=== PATIENT | female | born 1955 | race African-American/Black ===

== ENCOUNTER 2016-11-28 23:32 | Emergency (ER) | payer BC ==
[~2016-11-28] VITALS: Ht 167.6 cm; Wt 86.0 kg
[~2016-11-28 23:32] MED LIST: ACET250T3 PO; ATOR40TA PO; CEPH500C3 PO; CLOP75 PO; LORA-392 PO; LORTA5 PO; PANT20 PO; SULF-154 PO; VERA120T3 PO; ZOFR4TAB3 SL
[2016-11-28 23:33] VITALS: BP 184/91; PULSE 65; RESP 16; TEMP 98.5; O2SAT 99
[2016-11-29 00:22] VITALS: BP 147/85; PULSE 66; RESP 18; O2SAT 99
[2016-11-29] MEDS ORDERED: ATOR40TA16 PO (00:35)
[2016-11-29] MEDS ORDERED: ACETA500 PO (00:35)
[2016-11-29] MEDS ORDERED: ACET-822 (00:35)
[2016-11-29] MEDS ORDERED: MULT-159 (00:35)
[2016-11-29] MEDS ORDERED: GABA300C5 PO (00:35)
[2016-11-29] MEDS ORDERED: PANT40TA3 PO (00:35)
[2016-11-29] MEDS ORDERED: PRED1SUS RIGHT EYE (00:35)
[2016-11-29] MEDS ORDERED: CLOP75TA PO (00:35)
[2016-11-29] MEDS ORDERED: VERA120T3 PO (00:35)
[2016-11-29] MEDS ORDERED: ZOLP10TA3 PO (00:35)
[2016-11-29] MEDS ORDERED: ASPI81CH CHEW (00:35)
[2016-11-29] MEDS ORDERED: DIVA250ER PO (00:35)
[2016-11-29] MEDS ORDERED: ACETAMINOPHEN/CODEINE 300 MG/30 MG TAB PO ONE (01:00)
--- NOTE | 2016-11-29 02:04 | RADRPT ---
EXAM DATE/TIME: 11/29/2016 01:18 [facility] COMPARISON: No previous studies available for comparison. INDICATIONS : Left shoulder pain post fall. MEDICAL HISTORY : None. SURGICAL HISTORY : None. ENCOUNTER: Initial ACUITY: 1 day PAIN SCORE: 10/10 LOCATION: Left upper extremity FINDINGS: Multiple view examination of the left shoulder demonstrates no evidence of fracture or dislocation. The glenohumeral and acromioclavicular joints are maintained. There is normal range of motion betwee n internal and external rotation. Bony mineralization is normal. CONCLUSION: No acute fracture. Claude Flowers MD on November 29, 2016 at 2:01 Board Certified Radiologist. This report was verified electronically.
--- NOTE | 2016-11-29 02:15 | PD ---
HPI Chief Complaint: Fall Time Seen by Provider: 00:42 Travel History International Travel<30 days: No Contact w/Intl Traveler<30days: No Traveled to known affect area: No History of Present Illness HPI This is a 61-year-old female patient who slipped and fell earlier today onto her left shoulder. Examination initially noted pain in the left shoulder increased with movement and states she was able to move her arm freely. Time progressed patient noted increasing difficulty with all range of motion of the left shoulder all with an increased intensity of pain. She therefore came to the ER for evaluation and assessment of her symptoms. PFSH Past Medical History Hx Anticoagulant Therapy: No Arthritis: Yes Blood Disorders: No Heart Rhythm Problems: No Cancer: No Cardiac Catheterization: Yes Cardiovascular Problems: Yes (HTN, high cholesterol) High Cholesterol: Yes Chemotherapy: No Chest Pain: Yes Congestive Heart Failure: No Cerebrovascular Accident: No Diabetes: No Diminished Hearing: No Endocrine: No Gastrointestinal Disorders: Yes GERD: Yes Genitourinary: No Headaches: Yes Hypertension: Yes Immune Disorder: No Musculoskeletal: Yes (1986 BACK BRACE FOR DISK PAIN, ) Neurologic: Yes (TIA,CVA ) Psychiatric: No Reproductive: No Respiratory: No Migraines: Yes Radiation Therapy: No Seizures: No Menopausal: Yes Past Surgical History Abdominal Surgery: Yes Coronary Artery Bypass Graft: No Genitourinary Surgery: Yes (BLADDER SURGERY) Gynecologic Surgery: Yes Hysterectomy: No Tonsillectomy: Yes Other Surgery: Yes (HYSTERECTOMY,TONSILECTOMY, BLADDER) Social History Alcohol Use: No Tobacco Use: Yes (1PPD q3 days) Substance Use: No Allergies-Medications (Allergen,Severity, Reaction): Coded Allergies: Clonidine (Unverified Allergy, Intermediate, Hypotension, 11/29/16) "blood pressure too low" Reported Meds & Prescriptions Reported Meds & Active Scripts Active Reported Gabapentin 300 Mg Cap 300 Mg PO BID Depakote ER (Divalproex Sodium) 250 Mg Hina 0 PO DAILY Tylenol Extra Strength (Acetaminophen) 500 Mg Tablet Clopidogrel (Clopidogrel Bisulfate) 75 Mg Tab 75 Mg PO DAILY Multivitamins (Multivitamin) 1 Each Tab.chew Pantoprazole (Pantoprazole Sodium) 40 Mg Tab 40 Mg PO DAILY Verapamil (Verapamil HCl) 120 Mg Tab 120 Mg PO DAILY Atorvastatin (Atorvastatin Calcium) 40 Mg Tab 40 Mg PO HS Aspirin 81 Mg Chew 81 Mg CHEW DAILY Zolpidem (Zolpidem Tartrate) 10 Mg Tab 10 Mg PO HS PRN Diamox Sequels ER 12 HR (Acetazolamide) 500 Mg Cap 500 Mg PO Q12HR Pred Forte Opth 1% (Prednisolone Acetate Opth 1%) 1% Susp 1 Drop RIGHT EYE QID Review of Systems ROS Limitations: Clinical Condition Except as stated in HPI: all other systems reviewed are Neg General / Constitutional: No: Fever, Chills, Weight Gain, Weight Loss, Other Eyes: No: Diploplia, Blurred Vision, Photophobia, Drainage, Redness, Foreign Body Sensation, Pain, Tearing, Blind Spots, Visual changes, Blindness, Other HENT: No: Headaches, Vertigo, Lightheadedness, Sore Throat, Rhinitis, Rhinorrhea, Congestion, Nosebleed, Neck Stiffness, Neck Pain, Masses, Gingival Bleeding, Dental Difficulties, Ear Discharge, Earache, Other Cardiovascular: No: Chest Pain or Discomfort, Palpitations, Irregular Rhythm, Tachycardia, Diaphoresis, Syncope, Dyspnea on exertion, Varicosities, Edema, Cyanosis, Varicosities, Phlebitis, Claudication, Other Respiratory: No: Cough, Shortness of Breath, Wheezing, Sneezing, Orthopnea, Hemoptysis, Stridor, Night Sweats, Pleuritic Pain, Other Gastrointestinal: No: Nausea, Vomiting, Diarrhea, Abdominal Pain, Hematemesis, Hematochezia, Constipation, Changes in Bowel Habits, Indigestion, Dysphagia, Loss of Appetite, Other Genitourinary: No: Urgency, Frequency, Dysuria, Nocturia, Hematuria, Decreased Urinary Output, Oliguria, Hesitancy, Dribbling, Incontinence, Pelvic Pain, Flank Pain, Dyspareunia, Discharge, Dysmenorrhea, Menorrhagia, Metorrhagia, Vaginal Bleeding, Other Musculoskeletal: Positive: Limited ROM, Pain, No: Myalgias, Arthralgias, Weakness, Cramping, Edema, Atrophy, Other Skin: No Rash, No Itching, No Dryness, No Lumps, No Hives, No Change in Pigmentation, No Change in nails, No Alopecia, No Lesions, No Breast Lumps, No Breast Tenderness, No Breast Swelling, No Other Neurologic: No: Weakness, Dizziness, Syncope, Focal Abnormalities, Coordination Problem, Tremor, Ataxia, Headache, Change in Mentation, Slurred Speech, Paresthesia, Incontinence, Seizures, Sensory Disturbance, Other Psychiatric: No: Anxiety, Depression, Suicidal Ideations, Disorder of Thought, Mood Disorder, Substance Abuse, Homicidal Ideation, Other Endocrine: No: Heat Intolerance, Cold Intolerance, Polyuria, Polydipsia, Other Hematologic/Lymphatic: No: Easy Bruising, Lymph Node Enlargement, Other Physical Exam Exam Limitations: Clinical Condition Narrative GENERAL: 61-year-old female in mild distress SKIN: Focused skin assessment warm/dry.no lesions no cyanosis no erythema HEAD: Atraumatic. Normocephalic. EYES: Pupils equal and round and reactive . No scleral icterus. No injection or drainage. ENT: No nasal bleeding or discharge. Mucous membranes pink and moist. NECK: Trachea midline. No JVD. CARDIOVASCULAR: S1-S2 appreciated. PMI displaced laterally Regular rate and rhythm. No murmur appreciated. Pulses normal throughout. RESPIRATORY: No accessory muscle use. Clear to auscultation. Breath sounds equal bilaterally. GASTROINTESTINAL: Abdomen soft, non-tender, nondistended. Hepatic and splenic margins not palpable. Bowel sounds normal. No peritoneal signs. MUSCULOSKELETAL: Tenderness along the left glenohumeral joint region decreased range of motion and increased pain of left shoulder noted remarkably with abduction and external rotation of the left shoulder NEUROLOGICAL: Awake and alert and oriented 3.. No obvious cranial nerve deficits. Motor and sensory exam grossly within normal limits. Normal speech. No meningeal signs. PSYCHIATRIC: Appropriate mood and affect; insight and judgment normal. No suicidal or homicidal ideation. Data Data Last Documented VS Vital Signs Date Time Temp Pulse Resp B/P Pulse Ox O2 Delivery O2 Flow Rate FiO2 11/29/16 00:22 66 18 147/85 99 Room Air 11/28/16 23:33 98.5 Orders Shoulder, Complete (>2vws) (11/29/16 ) Acetamin-Codeine 300-30 Mg (Tylenol-Code (11/29/16 01:00) Support Splint (11/29/16 02:06) MDM Medical Decision Making Medical Screen Exam Complete: Yes Emergency Medical Condition: Yes Medical Record Reviewed: Yes Interpretation(s) X-ray of the left shoulder negative for acute fracture or dislocation Differential Diagnosis Differential diagnoses left shoulder fracture left shoulder subluxation rotator cuff injury left shoulder sprain Narrative Course X-ray recorded as negative for fracture or subluxation patient given Tylenol No. 3 while in the emergency department with some relief in pain but states pain control was not adequate so we'll also give tramadol. She concerned about taking tramadol right away after taking Tylenol 3 so wants to have Rx for tramadol to started home. She needs an outpatient MRI study did not a prescription pad. Arm sling applied and patient instructed to follow up with orthopedics. He said to call the [facility] on the next business day. Diagnosis Primary Impression: left shoulder sprain Additional Impression: suspected left rotator cuff injury Referrals: [facility] Amos Tramadol 50 Mg Tab50 Mg PO Q8H PRN (PAIN) #20 TAB Ref 0 Prov:Matthias Casanova MD 11/29/16 Condition: Stable Matthias Casanova MD Nov 29, 2016 02:15
[2016-11-29] MEDS ORDERED: TRAM50TA PO (02:22)
== END 2016-11-29 02:39 | disposition home or self-care (01) ==
LOC: NEPC 23:32
DX: I10 Essential (primary) hypertension (principal); E78.00 Pure hypercholesterolemia, unspecified; F17.210 Nicotine dependence, cigarettes, uncomplicated
CPT/HCPCS: 73030; 99283

== ENCOUNTER 2017-04-30 02:53 | Emergency (ER) | payer BC ==
[~2017-04-30] VITALS: Ht 170.2 cm; Wt 92.0 kg
[~2017-04-30 02:53] MED LIST changes: +ACET-822; -ACET250T3 PO; +ACETA500 PO; +ASPI-516 CHEW; -ATOR40TA PO; +ATOR40TA16 PO; -CEPH500C3 PO; -CLOP75 PO; +CLOP75TA PO; +DIVA250ER PO; +GABA300C5 PO; -LORA-392 PO; -LORTA5 PO; +MULT-159; -PANT20 PO; +PANT40TA3 PO; +PRED1SUS RIGHT EYE; -SULF-154 PO; +TRAM50TA PO; -ZOFR4TAB3 SL; +ZOLP10TA3 PO
[2017-04-30 02:54] VITALS: BP 175/116; PULSE 91; RESP 16; TEMP 97.7; O2SAT 97
[2017-04-30] MEDS ORDERED: BACL10TA PO (03:10)
[2017-04-30] MEDS ORDERED: NAPR500T2 PO (03:10)
[2017-04-30] MEDS ORDERED: DEXAMETHASONE SOD PHOS 4 MG/ML VIAL IM ONE (03:15)
--- NOTE | 2017-04-30 03:16 | PD ---
HPI Chief Complaint: Pain: Acute or Chronic Time Seen by Provider: 03:08 Travel History International Travel<30 days: No Contact w/Intl Traveler<30days: No Traveled to known affect area: No History of Present Illness HPI 61-year-old female presents for evaluation of lower back pain. Symptom onset 1 month ago. She reports lower back pain that shoots down the posterior aspect of both legs, sharp shooting pain, worse with movement. She denies any weakness , bowel or bladder incontinence, saddle anesthesia, nausea or vomiting, flank pain, chest pain, shortness of breath. She denies any injury. She reports that she has seen her primary care physician, Dr. Himanshu Be, about this pain and had a outpatient MRI of the lumbar spine 1-2 weeks ago which revealed bulging disks. She has been taking some leftover tramadol and hydrocodone but symptoms persisted tonight aching it difficult to sleep and this is what prompted evaluation. She has no other complaints at this time. PFSH Past Medical History Hx Anticoagulant Therapy: No Arthritis: Yes Blood Disorders: No Heart Rhythm Problems: No Cancer: No Cardiac Catheterization: Yes Cardiovascular Problems: Yes High Cholesterol: Yes Chemotherapy: No Chest Pain: Yes Congestive Heart Failure: No Cerebrovascular Accident: Yes (CVA) Diabetes: No Diminished Hearing: No Endocrine: No Gastrointestinal Disorders: Yes GERD: Yes Genitourinary: No Headaches: Yes Hypertension: Yes Immune Disorder: No Musculoskeletal: Yes (1986 BACK BRACE FOR DISK PAIN, ) Neurologic: Yes (TIA,CVA ) Psychiatric: No Reproductive: No Respiratory: No Migraines: Yes Radiation Therapy: No Seizures: No Menopausal: Yes Past Surgical History Abdominal Surgery: Yes Coronary Artery Bypass Graft: No Genitourinary Surgery: Yes (BLADDER SURGERY) Gynecologic Surgery: Yes Hysterectomy: Yes Tonsillectomy: Yes Other Surgery: Yes Social History Alcohol Use: No Tobacco Use: No Substance Use: No Allergies-Medications (Allergen,Severity, Reaction): Coded Allergies: clonidine (Unverified Allergy, Intermediate, Hypotension, 04/30/17) "blood pressure too low" Reported Meds & Prescriptions Reported Meds & Active Scripts Active Baclofen 10 Mg Tab 10 Mg PO TID 7 Days Naproxen 500 Mg Tab 500 Mg PO BID 7 Days Tramadol (Tramadol HCl) 50 Mg Tab 50 Mg PO Q8H PRN Reported Gabapentin 300 Mg Cap 300 Mg PO BID Depakote ER (Divalproex Sodium) 250 Mg Hina 0 PO DAILY Tylenol Extra Strength (Acetaminophen) 500 Mg Tablet Clopidogrel (Clopidogrel Bisulfate) 75 Mg Tab 75 Mg PO DAILY Multivitamins (Multivitamin) 1 Each Tab.chew Pantoprazole (Pantoprazole Sodium) 40 Mg Tab 40 Mg PO DAILY Verapamil (Verapamil HCl) 120 Mg Tab 120 Mg PO DAILY Atorvastatin (Atorvastatin Calcium) 40 Mg Tab 40 Mg PO HS Aspirin 81 Mg Chew 81 Mg CHEW DAILY Zolpidem (Zolpidem Tartrate) 10 Mg Tab 10 Mg PO HS PRN Diamox Sequels ER 12 HR (Acetazolamide) 500 Mg Cap 500 Mg PO Q12HR Pred Forte Opth 1% (Prednisolone Acetate Opth 1%) 1% Susp 1 Drop RIGHT EYE QID Review of Systems Except as stated in HPI: all other systems reviewed are Neg Physical Exam Narrative GENERAL: Well-developed well-nourished female in no acute distress SKIN: Warm and dry. HEAD: Atraumatic. Normocephalic. EYES: Pupils equal and round. No scleral icterus. No injection or drainage. ENT: No nasal bleeding or discharge. Mucous membranes pink and moist. NECK: Trachea midline. No JVD. CARDIOVASCULAR: Regular rate and rhythm. No murmur appreciated. RESPIRATORY: No accessory muscle use. Clear to auscultation. Breath sounds equal bilaterally. GASTROINTESTINAL: Abdomen soft, non-tender, nondistended. Hepatic and splenic margins not palpable. MUSCULOSKELETAL: No obvious deformities. No clubbing. No cyanosis. No edema. Some tenderness to palpation to the lumbar spine and paravertebral musculature. 5 out of 5 muscle strength in the lower extremities bilaterally. NEUROLOGICAL: Awake and alert. No obvious cranial nerve deficits. Motor grossly within normal limits. Normal speech. PSYCHIATRIC: Appropriate mood and affect; insight and judgment normal. Data Data Last Documented VS Vital Signs Date Time Temp Pulse Resp B/P (MAP) Pulse Ox O2 Delivery O2 Flow Rate FiO2 04/30/17 02:54 97.7 91 16 175/116 (135) 97 Orders Orders Dexamethasone Inj (Decadron Inj) (04/30/17 03:15) MDM Medical Decision Making Medical Screen Exam Complete: Yes Emergency Medical Condition: Yes Medical Record Reviewed: Yes Differential Diagnosis Herniated nucleus pulposus, peripheral neuropathy, spinal stenosis, cauda equina syndrome, muscle spasm, DVT, claudication Narrative Course 62-year-old female presents for evaluation of lower back pain that has been radiating down both legs for one month. She had a recent MRI of the lumbar spine ordered by her primary care physician revealing bulging disks as the etiology of her pain. Physical examination is benign. She has no motor weakness. The patient will be driving herself home tonight and therefore sedating medications will be avoided. She will be given a dose of Decadron and discharged with a short course of Naprosyn and baclofen. Recommended close follow-up with her primary care physician for further management of this pain. Diagnosis Primary Impression: Lumbosacral radiculopathy Additional Instructions: Medication as needed. Take naproxen with meals. Do not drive or drink alcohol when taking baclofen. Follow up close with primary care physician. Return for any emergent medical conditions. Med/Other Pt SpecificInfo: Prescription(s) given Scripts Baclofen (Baclofen) 10 Mg Tab 10 MG PO TID for Muscle Spasm for 7 Days, TAB 0 Refills Prov: Saeed Beauchamp MD 04/30/17 Naproxen (Naproxen) 500 Mg Tab 500 MG PO BID for 7 Days, #14 TAB 0 Refills Prov: Saeed Beauchamp MD 04/30/17 Disposition: 01 DISCHARGE HOME Condition: Stable Reji Davies Apr 30, 2017 03:16
[2017-04-30] MEDS ORDERED: LISI40TA PO (03:24)
[2017-04-30] MEDS ORDERED: CALC1TAB87 PO (03:24)
== END 2017-04-30 03:41 | disposition home or self-care (01) ==
LOC: NEPD 02:53
DX: M54.17 Radiculopathy, lumbosacral region (principal); I10 Essential (primary) hypertension; M62.838 Other muscle spasm; E78.00 Pure hypercholesterolemia, unspecified; K21.9 Gastro-esophageal reflux disease without esophagitis; M19.90 Unspecified osteoarthritis, unspecified site; Z86.73 Personal history of transient ischemic attack (TIA), and cerebral infarction without residual deficits; Z88.8 Allergy status to other drugs, medicaments and biological substances; Z79.82 Long term (current) use of aspirin
CPT/HCPCS: 96372; 99284; J1100

== ENCOUNTER 2017-08-25 13:02 | Observation (INO) | payer BC, OTHER ==
[~2017-08-25] VITALS: Ht 170.2 cm; Wt 92.0 kg
[2017-08-25] VITALS (8 sets, daily range): BP systolic 114–150; BP diastolic 56–96; PULSE 75–85; RESP 16–20; TEMP 97.7–98.5; O2SAT 93–100
[~2017-08-25 13:02] MED LIST changes: -ACET-822; +ACET-822 PO; -ASPI-516 CHEW; +BACL10TA PO; +CALC1TAB87 PO; +LISI40TA PO; -MULT-159; -PRED1SUS RIGHT EYE
[2017-08-25] MEDS ORDERED: DIOV160T6 PO (14:15)
[2017-08-25] MEDS ORDERED: ASPIRIN 81 MG CHEW TAB PO ONE (14:15)
[2017-08-25] MEDS ORDERED: VITA2000 PO (14:15)
[2017-08-25] MEDS ORDERED: MULTTAB67 PO (14:15)
[2017-08-25] MEDS ORDERED: CELE200C PO (14:15)
[2017-08-25] MEDS ORDERED: [UNRECOGNIZED DRUG - CODE] PO (14:15)
[2017-08-25] MEDS ORDERED: NITROGLYCERIN 2% OINT 1 GM PACKET TOP ONE (14:15)
[2017-08-25] MEDS ORDERED: SODIUM CHLORIDE 0.9% FLUSH 10 ML FLUSH IVF PRN (14:15)
[2017-08-25] MEDS ORDERED: MORPHINE SULFATE 4 MG/ML INJ IV PUSH ONE (14:15)
[2017-08-25] MEDS ORDERED: CALCTAB94 PO (14:15)
[2017-08-25] MEDS ORDERED: ANUC25SU PR (14:15)
[2017-08-25] MEDS ORDERED: ZANT150T2 PO (14:15)
[2017-08-25] MEDS ORDERED: CHLO25TA2 PO (14:15)
--- NOTE | 2017-08-25 14:54 | RADRPT ---
EXAM DATE/TIME: 08/25/2017 14:30 [facility] COMPARISON: No previous studies available for comparison. INDICATIONS : Chest pain, left side intermittently for several months. MEDICAL HISTORY : None. SURGICAL HISTORY : None. ENCOUNTER: Initial ACUITY: 3 months PAIN SCORE: 5/10 LOCATION: Left chest FINDINGS: PA and lateral views of the chest demonstrate the lungs to be symmetrically aerated without evidence of mass, infiltrate or effusion. The cardiomediastinal contours are unremarkable. Osseous structure s are intact. CONCLUSION: 1. No active disease. Mildly tortuous aorta. Amos Tobar MD on August 25, 2017 at 14:51 Board Certified Radiologist. This report was verified electronically.
[2017-08-25 15:27] LABS: AUTOMATED NEUTROPHIL # 2.2 TH/MM3 (1.8-7.7); BASOPHIL % 0.6 % (0.0-2.0); EOSINOPHIL # 0.1 TH/MM3 (0-0.4); EOSINOPHIL % 1.3 % (0.0-4.0); HEMATOCRIT 38.8 % (35.0-46.0); HEMOGLOBIN 12.8 GM/DL (11.6-15.3); LYMPH % 42.4 % (9.0-44.0); LYMPHOCYTE # 2.1 TH/MM3 (1.0-4.8); MEAN CELL VOLUME 85.9 FL (80.0-100.0); MEAN CORPUSCULAR HEMOGLOBIN 28.5 PG (27.0-34.0); MEAN CORPUSCULAR HGB CONC 33.1 % (32.0-36.0); MEAN PLATELET VOLUME 8.9 FL (7.0-11.0); MONO % 10.2 % (0.0-8.0); MONOCYTE # 0.5 TH/MM3 (0-0.9); NEUT % 45.5 % (16.0-70.0); PLATELET COUNT 275 TH/MM3 (150-450); RED BLOOD COUNT 4.52 MIL/MM3 (4.00-5.30); RED CELL DISTRIBUTION WIDTH 13.7 % (11.6-17.2); WHITE BLOOD COUNT 4.9 TH/MM3 (4.0-11.0)
[2017-08-25 15:58] LABS: TROPONIN I LESS THAN 0.02 NG/ML (0.02-0.05)
[2017-08-25 16:00] LABS: BICARBONATE 28.8 MEQ/L (21.0-32.0); BLOOD UREA NITROGEN 16 MG/DL (7-18); CHLORIDE 105 MEQ/L (98-107); CREATININE 0.89 MG/DL (0.50-1.00); GLOMERULAR FILTRATION RATE 78 ML/MIN (>89); GLUCOSE,RANDOM 78 MG/DL (74-106); MAGNESIUM 1.9 MG/DL (1.5-2.5); SODIUM (NA) 140 MEQ/L (136-145)
--- NOTE | 2017-08-25 16:18 | PD ---
HPI . Chest pain Chief Complaint: Chest Pain Time Seen by Provider: 14:08 Travel History International Travel<30 days: No Contact w/Intl Traveler<30days: No Traveled to known affect area: No History of Present Illness HPI This patient presents with the acute onset of chest pain. She states that it started an hour or so prior to presentation. She states that she had reached for something while shopping when this started. She rates the pain 10/10. There are no modifying factors. She states that she is currently being evaluated by Dr. Murillo for chest pain. She states that an echo and stress test are planned. She has not been given any nitroglycerin to use as needed for chest pain. Her risk factors include hypertension and hyperlipidemia. PFSH Past Medical History Hx Anticoagulant Therapy: Yes Arthritis: Yes Blood Disorders: No Heart Rhythm Problems: No Cancer: No Cardiac Catheterization: Yes Cardiovascular Problems: Yes High Cholesterol: Yes Chemotherapy: No Chest Pain: Yes Congestive Heart Failure: No Cerebrovascular Accident: Yes (CVA 2005) Diabetes: No Diminished Hearing: No Endocrine: No Gastrointestinal Disorders: Yes GERD: Yes Genitourinary: No Headaches: Yes Hypertension: Yes Immune Disorder: No Musculoskeletal: Yes (1985 BACK BRACE FOR DISK PAIN, ) Neurologic: Yes (TIA,CVA ) Psychiatric: No Reproductive: No Respiratory: No Migraines: Yes Radiation Therapy: No Seizures: No Menopausal: Yes Past Surgical History Abdominal Surgery: Yes Coronary Artery Bypass Graft: No Genitourinary Surgery: Yes (BLADDER SURGERY) Gynecologic Surgery: Yes Hysterectomy: Yes Tonsillectomy: Yes Other Surgery: Yes Social History Alcohol Use: No Tobacco Use: No Substance Use: No Allergies-Medications (Allergen,Severity, Reaction): Coded Allergies: clonidine (Unverified Allergy, Intermediate, Hypotension, 04/30/17) "blood pressure too low" Reported Meds & Prescriptions Reported Meds & Active Scripts Active Reported Chlorthalidone 25 Mg Tab 25 Mg PO DAILY Diovan (Valsartan) 160 Mg Tab 160 Mg PO DAILY Vitamin D3 (Cholecalciferol) 2,000 Unit Cap 2,000 Units PO BID Multiple Vitamin 1 Tab 1 Tab PO DAILY Fish Oil Concentrate ([place]-3 Fatty Acids) 1,000 Mg Capsule 1,000 Mg PO DAILY Zantac (Ranitidine HCl) 150 Mg Tab 150 Mg PO HS Anucort-Hc (Hydrocortisone Acetate (Rectal) 25 Mg Sup 25 Mg NH HS PRN Celebrex (Celecoxib) 200 Mg Cap 200 Mg PO DAILY PRN Calcium 600 (Calcium Carbonate) 600 Mg Calcium (1500 Mg) Tab 600 Mg PO DAILY Tylenol Extra Strength (Acetaminophen) 500 Mg Tablet 500 Mg PO Q4-6H PRN Clopidogrel (Clopidogrel Bisulfate) 75 Mg Tab 75 Mg PO DAILY Pantoprazole (Pantoprazole Sodium) 40 Mg Tab 40 Mg PO BID Take 30 minutes before breakfast and dinner Atorvastatin (Atorvastatin Calcium) 40 Mg Tab 40 Mg PO HS Diamox Sequels ER 12 HR (Acetazolamide) 500 Mg Cap 500 Mg PO Q12HR Review of Systems Except as stated in HPI: all other systems reviewed are Neg Cardiovascular: Positive: Chest Pain or Discomfort Respiratory: Positive: Shortness of Breath Physical Exam Narrative GENERAL: Awake and alert SKIN: warm/dry. HEAD: Normocephalic. EYES: Pupils equal and round. No scleral icterus. No injection or drainage. ENT: No nasal bleeding or discharge. Mucous membranes pink and moist. NECK: Trachea midline. Full range of motion without pain.. CARDIOVASCULAR: Regular rate and rhythm. Heart sounds are normal. RESPIRATORY: No accessory muscle use. Clear to auscultation. Breath sounds equal bilaterally. She appears to be hyperventilating. GASTROINTESTINAL: Abdomen soft. Nontender. Bowel sounds present. Nondistended. MUSCULOSKELETAL: No obvious deformities. NEUROLOGICAL: Awake and alert. No obvious cranial nerve deficits. Motor grossly within normal limits. Normal speech. PSYCHIATRIC: Appropriate mood and affect; insight and judgment normal. Data Data Last Documented VS Vital Signs Date Time Temp Pulse Resp B/P (MAP) Pulse Ox O2 Delivery O2 Flow Rate FiO2 08/25/17 15:10 18 100 Nasal Cannula 2.00 08/25/17 14:52 75 08/25/17 13:09 97.9 Orders Orders Electrocardiogram (08/25/17 ) Basic Metabolic Panel (Bmp) (08/25/17 14:09) Complete Blood Count With Diff (08/25/17 14:09) Magnesium (Mg) (08/25/17 14:09) Prothrombin Time / Inr (Pt) (08/25/17 14:09) Act Partial Throm Time (Ptt) (08/25/17 14:09) Troponin I (08/25/17 14:09) Ecg Monitoring (08/25/17 14:09) Iv Access Insert/Monitor (08/25/17 14:09) Oximetry (08/25/17 14:09) Aspirin Chew (Aspirin Chew) (08/25/17 14:15) Morphine Inj (Morphine Inj) (08/25/17 14:15) Nitroglycerin 2% Oint (Nitroglycerin 2% (08/25/17 14:15) Sodium Chloride 0.9% Flush (Ns Flush) (08/25/17 14:15) Chest, Pa & Lat (08/25/17 14:09) Labs Laboratory Tests Test 08/25/17 13:35 White Blood Count 4.9 TH/MM3 Red Blood Count 4.52 MIL/MM3 Hemoglobin 12.8 GM/DL Hematocrit 38.8 % Mean Corpuscular Volume 85.9 FL Mean Corpuscular Hemoglobin 28.5 PG Mean Corpuscular Hemoglobin Concent 33.1 % Red Cell Distribution Width 13.7 % Platelet Count 275 TH/MM3 Mean Platelet Volume 8.9 FL Neutrophils (%) (Auto) 45.5 % Lymphocytes (%) (Auto) 42.4 % Monocytes (%) (Auto) 10.2 % Eosinophils (%) (Auto) 1.3 % Basophils (%) (Auto) 0.6 % Neutrophils # (Auto) 2.2 TH/MM3 Lymphocytes # (Auto) 2.1 TH/MM3 Monocytes # (Auto) 0.5 TH/MM3 Eosinophils # (Auto) 0.1 TH/MM3 Basophils # (Auto) 0.0 TH/MM3 CBC Comment DIFF FINAL Differential Comment Prothrombin Time 10.0 SEC Prothromb Time International Ratio 1.0 RATIO Activated Partial Thromboplast Time 28.0 SEC Blood Urea Nitrogen 16 MG/DL Creatinine 0.89 MG/DL Random Glucose 78 MG/DL Calcium Level 10.0 MG/DL Magnesium Level 1.9 MG/DL Sodium Level 140 MEQ/L Potassium Level 3.9 MEQ/L Chloride Level 105 MEQ/L Carbon Dioxide Level 28.8 MEQ/L Anion Gap 6 MEQ/L Estimat Glomerular Filtration Rate 78 ML/MIN Troponin I LESS THAN 0.02 NG/ML [facility] Medical Decision Making Medical Screen Exam Complete: Yes Emergency Medical Condition: Yes Medical Record Reviewed: Yes (She had an echo done in 2013 which was normal. She had a Lexiscan stress test done in 2012 which was normal.) Interpretation(s) EKG shows a normal sinus rhythm with no acute ischemic change. Differential Diagnosis Differential diagnosis of chest pain includes but is not limited to musculoskeletal pain, pulmonary embolism, acute coronary syndrome, pneumonia, pleurisy Narrative Course This patient presents with chest pain shortness of breath which started while she was shopping. She was placed on oxygen by the nursing staff. I have ordered aspirin, morphine and nitroglycerin. Cardiac workup was initiated. CBC & BMP Diagram 08/25/17 13:35 Calcium Level 10.0, Magnesium Level 1.9 Troponin less than 0.02 Last Impressions Chest X-Ray 08/25/17 1409 Signed Impressions: Service Date/Time: Sunday, August 25, 2017 14:30 - CONCLUSION: 1. No active disease. Mildly tortuous aorta. Amos Tobar MD She states that she is pain-free following medications. I will admit her to the chest pain center. Diagnosis Primary Impression: Chest pain Qualified Codes: R07.9 - Chest pain, unspecified Admitting Information Admitting Physician Requests: Observation Condition: Stable Deena Rocha MD Aug 25, 2017 16:18
[2017-08-25] MEDS ORDERED: ACETAMINOPHEN 500 MG CPLT PO PRN (16:30)
[2017-08-25] MEDS ORDERED: NITROGLYCERIN 0.4 MG SL 25 TABS/BTL SL PRN (16:30)
[2017-08-25] MEDS ORDERED: SODIUM CHLORIDE 0.9% FLUSH 10 ML FLUSH IV FLUSH PRN (16:30)
[2017-08-25] MEDS ORDERED: ONDANSETRON HCL 4 MG/2 ML VIAL IV PUSH PRN (16:30)
--- NOTE | 2017-08-25 17:42 | HHI.HP ---
HPI Primary Care Physician Joel Murillo MD Chief Complaint Chest pain History of Present Illness 62-year-old female history of CVA, pseudotumor cerebri, hypertension, hyperlipidemia, former smoker presents to emergency room for further evaluation of chest pain. Endorses approximately 6 months of chest pain. Describing 2 different types of chest pain. Notified PCP who referred her to Dr. Murillo. Currently being evaluated by Dr. Murillo who ordered echocardiogram and nuclear chemical stress test. Those testing are planned within next week or two. Today while shopping, reached picking up a #20 bag of sugar. Developed left anterior chest pain. Characterized as a quick, sharp pain. Duration seconds. No associated symptoms of nausea, vomiting, diaphoresis, or dyspnea. Endorses months of this time of pain, although she believes discomfort occurring more frequent. Second type of chest discomfort she describes occurs only when laying flat. Characterized as pressure. No radiation. Precipitating factors laying flat. Relieving factors moving to right side. Duration "last until I move onto my right side." Review of Systems General: No fatigue,weakness, fever, chills, recent illness, or change in appetite HEENT: No LUJAN, no vision changes, no nasal congestion or drainage, no dysphasia CV: As stated above. No current chest pain or pressure. No palpitations. RESP: No SOB, cough, wheeze, or recent URI. Former smoker. GI: No nausea, vomiting, or bowel changes : No dysuria, urgency, frequency EXT: No lower leg edema, no paraesthesias MS: No discomfort or change in ROM. Remote left shoulder injury one year ago. NEURO: History of CVA, TIA's, complex migraines, and pseudotumor cerebri. No difficulty with balance, LOC, motor/sensory deficits PSYCH: No anxiety, depression, or situational stress. SKIN: No rashes, no concerning lesions Past Family Social History Allergies: Coded Allergies: clonidine (Unverified Allergy, Intermediate, Hypotension, 04/30/17) "blood pressure too low" Past Medical History Hypertension, hyperlipidemia, CVA, GERD, former smoker, complex migraines, pseudotumor cerebri Past Surgical History Hysterectomy, tonsillectomy, bladder surgery (age 89), Left shoulder fracture ( 2017) Reported Medications Reported Meds & Active Scripts Active Reported Chlorthalidone 25 Mg Tab 25 Mg PO DAILY Diovan (Valsartan) 160 Mg Tab 160 Mg PO DAILY Vitamin D3 (Cholecalciferol) 2,000 Unit Cap 2,000 Units PO BID Multiple Vitamin 1 Tab 1 Tab PO DAILY Fish Oil Concentrate ([place]-3 Fatty Acids) 1,000 Mg Capsule 1,000 Mg PO DAILY Zantac (Ranitidine HCl) 150 Mg Tab 150 Mg PO HS Anucort-Hc (Hydrocortisone Acetate (Rectal) 25 Mg Sup 25 Mg ID HS PRN Celebrex (Celecoxib) 200 Mg Cap 200 Mg PO DAILY PRN Calcium 600 (Calcium Carbonate) 600 Mg Calcium (1500 Mg) Tab 600 Mg PO DAILY Tylenol Extra Strength (Acetaminophen) 500 Mg Tablet 500 Mg PO Q4-6H PRN Clopidogrel (Clopidogrel Bisulfate) 75 Mg Tab 75 Mg PO DAILY Pantoprazole (Pantoprazole Sodium) 40 Mg Tab 40 Mg PO BID Take 30 minutes before breakfast and dinner Atorvastatin (Atorvastatin Calcium) 40 Mg Tab 40 Mg PO HS Diamox Sequels ER 12 HR (Acetazolamide) 500 Mg Cap 500 Mg PO Q12HR Active Ordered Medications Current Medications Medications (Trade) Dose Ordered Sig/Darwin Route Start Time Stop Time Status Last Admin (NS Flush) 2 ml UNSCH PRN IVF 08/25/17 14:15 08/25/17 14:52 (NS Flush) 2 ml UNSCH PRN IV FLUSH 08/25/17 16:30 (NS Flush) 2 ml BID IV FLUSH 08/25/17 21:00 (Tylenol) 500 mg Q4H PRN PO 08/25/17 16:30 (Zofran Inj) 4 mg Q6H PRN IV PUSH 08/25/17 16:30 (Nitrostat Sl) 0.4 mg Q5M PRN SL 08/25/17 16:30 (Aspirin) 325 mg DAILY PO 08/26/17 09:00 Family History Father CVA and NM age 41. Social History No known coronary artery disease or diabetes. Known hypertension and hyperlipidemia Physical Exam Vital Signs Vital Signs Date Time Temp Pulse Resp B/P (MAP) Pulse Ox O2 Delivery O2 Flow Rate FiO2 08/25/17 15:10 18 100 Nasal Cannula 2.00 08/25/17 14:52 75 20 127/84 (98) 100 08/25/17 13:35 78 20 150/82 (104) 100 Nasal Cannula 2.00 08/25/17 13:32 79 20 100 Nasal Cannula 2.00 08/25/17 13:09 97.9 83 18 134/96 (109) 100 Physical Exam GENERAL: Alert WN, WD, NAD, pleasant, moderately obese female HEAD: NC, AT EYES: Sclera clear, conjunctiva without injection, pupils equal and round ENT: Mucous membranes pink and moist NECK: Supple, no masses, trachea midline CV: RRR, without murmur, rub, gallop, no JVD, S1-S2 no S3-S4. No carotid bruits. Chest wall tender with palpation. RESP: Clear lungs throughout bilateral, no crackles, wheeze, rhonchi, symmetrical chest rise, nonlabored, able to speak in full sentences ABD: Soft, NT, ND, no masses, positive bowel tones EXT: Pulses +24, no dependent edema MS: Normal tone 4 extremities, nontender, no obvious deformities, full range of motion NEURO: CN II through CN XII grossly intact, motor strength 5/5 PSYCH: A+O 3, pleasant affect, appropriate speech, mood, insight and judgment SKIN: Normal turgor, normal texture, no lesions, no rashes Laboratory Laboratory Tests Test 08/25/17 13:35 08/25/17 17:04 White Blood Count 4.9 Red Blood Count 4.52 Hemoglobin 12.8 Hematocrit 38.8 Mean Corpuscular Volume 85.9 Mean Corpuscular Hemoglobin 28.5 Mean Corpuscular Hemoglobin Concent 33.1 Red Cell Distribution Width 13.7 Platelet Count 275 Mean Platelet Volume 8.9 Neutrophils (%) (Auto) 45.5 Lymphocytes (%) (Auto) 42.4 Monocytes (%) (Auto) 10.2 Eosinophils (%) (Auto) 1.3 Basophils (%) (Auto) 0.6 Neutrophils # (Auto) 2.2 Lymphocytes # (Auto) 2.1 Monocytes # (Auto) 0.5 Eosinophils # (Auto) 0.1 Basophils # (Auto) 0.0 CBC Comment DIFF FINAL Differential Comment Prothrombin Time 10.0 Prothromb Time International Ratio 1.0 Activated Partial Thromboplast Time 28.0 Blood Urea Nitrogen 16 Creatinine 0.89 Random Glucose 78 Calcium Level 10.0 Magnesium Level 1.9 Sodium Level 140 Potassium Level 3.9 Chloride Level 105 Carbon Dioxide Level 28.8 Anion Gap 6 Estimat Glomerular Filtration Rate 78 Troponin I LESS THAN 0.02 Result Diagram: 3/31/18 1335 08/25/17 1335 Imaging Last 48 hours Impressions Chest X-Ray 08/25/17 1409 Signed Impressions: Service Date/Time: Friday, August 25, 2017 14:30 - CONCLUSION: 1. No active disease. Mildly tortuous aorta. Amos Tobar MD Course EKG Normal sinus rhythm, Q waves inferiorly, nonspecific ST changes Caprini VTE Risk Assessment Caprini VTE Risk Assessment: Mod/High Risk (score >= 2) Caprini Risk Assessment Model Point Value = 1 Point Value = 2 Point Value = 3 Point Value = 5 Age 41-60 Minor surgery BMI > 25 kg/m2 Swollen legs Varicose veins or History of unexplained or recurrent spontaneous Oral contraceptives or hormone replacement Sepsis (< 1 month) Serious lung disease, including pneumonia (< 1 month) Abnormal pulmonary function Acute myocardial infarction Congestive heart failure (< 1 month) History of inflammatory bowel disease Medical patient at bed rest Age 61-74 Arthroscopic surgery Major open surgery (> 45 min) Laparoscopic surgery (> 45 min) Malignancy Confined to bed (> 72 hours) Immobilizing plaster cast Central venous access Age >= 75 History of VTE Family history of VTE Factor V Leiden Prothrombin [id number] Lupus anticoagulant Anticardiolipin antibodies Elevated serum homocysteine Heparin-induced thrombocytopenia Other congenital or acquired thrombophilia Stroke (< 1 month) Elective arthroplasty Hip, pelvis, or leg fracture Acute spinal cord injury (< 1 month) Prophylaxis Regimen Total Risk Factor Score Risk Level Prophylaxis Regimen 0-1 Low Early ambulation 2 Moderate Order ONE of the following: *Sequential Compression Device (SCD) *Heparin 5000 units SQ BID 3-4 Higher Order ONE of the following medications: *Heparin 5000 units SQ TID *Enoxaparin/Lovenox 40 mg SQ daily (WT < 150 kg, CrCl > 30 mL/min) *Enoxaparin/Lovenox 30 mg SQ daily (WT < 150 kg, CrCl > 10-29 mL/min) *Enoxaparin/Lovenox 30 mg SQ BID (WT < 150 kg, CrCl > 30 mL/min) AND/OR *Sequential Compression Device (SCD) 5 or more Highest Order ONE of the following medications: *Heparin 5000 units SQ TID (Preferred with Epidurals) *Enoxaparin/Lovenox 40 mg SQ daily (WT < 150 kg, CrCl > 30 mL/min) *Enoxaparin/Lovenox 30 mg SQ daily (WT < 150 kg, CrCl > 10-29 mL/min) *Enoxaparin/Lovenox 30 mg SQ BID (WT < 150 kg, CrCl > 30 mL/min) AND *Sequential Compression Device (SCD) Assessment and Plan Assessment and Plan #1 Chest pain-admitted to chest pain center. Rule out with 3 sets EKGs, cardiac enzymes, and monitored overnight. Seen and evaluated by Dr. Edwardo Cheney. If ruled out plan is to complete Lexiscan in a.m. If unremarkable, plans. Discharge home with follow-up with PCP and Dr. Murillo. Patient is agreeable to plan of care. #2 History of hypertension-continue Diovan, chlorthalidone #3 History of hyperlipidemia-continue atorvastatin #4 History of pseudotumor cerebri-continue Diomax #4 History of CVA-continue Clopidogrel #6 History of GERD-continue Zantac Lary Frazier Aug 25, 2017 17:42
[2017-08-25 17:55] LABS: TROPONIN I LESS THAN 0.02 NG/ML (0.02-0.05)
[2017-08-25] MEDS ORDERED: FAMOTIDINE 20 MG TAB PO SCH (21:00)
[2017-08-25] MEDS ORDERED: ATORVASTATIN 40 MG TAB PO SCH (21:00)
[2017-08-25 22:11] LABS: TROPONIN I LESS THAN 0.02 NG/ML (0.02-0.05)
[2017-08-25] MEDS: SODIUM CHLORIDE 0.9% FLUSH 10 ML FLUSH IV FLUSH SCH (22:23)
[2017-08-25] MEDS: acetaZOLAMIDE SEQUELS 500 MG SUSTAINED RELEASE CAP PO SCH (22:23)
[2017-08-25] MEDS: PANTOPRAZOLE SOD 40 MG DELAYED RELEASE TAB PO SCH (22:24)
[2017-08-25] MEDS: CHOLECALCIFEROL (VIT D3) 1000 UNIT TAB PO SCH (22:24)
[2017-08-26 03:43] VITALS: BP 91/52; PULSE 80; RESP 16; TEMP 97.6; O2SAT 96
[2017-08-26 08:04] VITALS: BP 109/64; PULSE 82; RESP 18; TEMP 97.9; O2SAT 97
[2017-08-26] MEDS ORDERED: VALSARTAN 160 MG TAB PO SCH (09:00)
[2017-08-26] MEDS ORDERED: CLOPIDOGREL 75 MG TAB PO SCH (09:00)
[2017-08-26] MEDS ORDERED: FATTY ACIDS PO SCH (09:00)
[2017-08-26] MEDS ORDERED: ASPIRIN 325 MG TAB PO SCH (09:00)
[2017-08-26] MEDS ORDERED: CHLORTHALIDONE 50 MG TAB PO SCH (09:00)
[2017-08-26] MEDS ORDERED: CALCIUM CARBONATE 500 MG CHEWABLE TAB PO SCH (09:00)
[2017-08-26] MEDS ORDERED: MULTIVITAMIN TAB PO SCH (09:00)
[2017-08-26] MEDS ORDERED: OMEGA PO SCH (09:00)
[2017-08-26] MEDS: acetaZOLAMIDE SEQUELS 500 MG SUSTAINED RELEASE CAP PO SCH (09:25)
[2017-08-26] MEDS: PANTOPRAZOLE SOD 40 MG DELAYED RELEASE TAB PO SCH (09:25)
[2017-08-26] MEDS: CHOLECALCIFEROL (VIT D3) 1000 UNIT TAB PO SCH (09:25)
[2017-08-26] MEDS: SODIUM CHLORIDE 0.9% FLUSH 10 ML FLUSH IV FLUSH SCH (09:26)
--- NOTE | 2017-08-26 11:31 | EKG ---
Date Performed: 08/26/2017 Time Performed: 02:14:40 PTAGE: 62 years EKG: Sinus rhythm Nonspecific ST and T wave abnormalities possible INFERIOR MYOCARDIAL INFARCTION ABNORMAL ECG PREVIOUS TRACING : 08/25/2017 17.04 Compared to previous tracing,t wave changes are new DOCTOR: Edwardo Cheney Interpretating Date/Time 08/26/2017 11:30:26
[2017-08-26] MEDS ORDERED: REGADENOSON INJ 0.4 MG/5 ML SYR ONE (11:56)
--- NOTE | 2017-08-26 12:08 | EKG ---
Date Performed: 08/25/2017 Time Performed: 17:04:42 PTAGE: 62 years EKG: Sinus rhythm INFERIOR MYOCARDIAL INFARCTION ABNORMAL ECG PREVIOUS TRACING : 08/25/2017 13.18 Since the previous tracing, no significant change noted DOCTOR: Neal Espinoza Interpretating Date/Time 08/26/2017 12:06:31
--- NOTE | 2017-08-26 12:10 | EKG ---
Date Performed: 08/25/2017 Time Performed: 13:18:55 PTAGE: 62 years EKG: Sinus rhythm POSSIBLE INFERIOR MYOCARDIAL INFARCTION BORDERLINE ECG PREVIOUS TRACING 01/21/2015 2014.26 Since the previous tracing, no significant change noted DOCTOR: Neal Espinoza Interpretating Date/Time 08/26/2017 12:10:17
--- NOTE | 2017-08-26 13:03 | RADRPT ---
EXAM DATE/TIME: 08/26/2017 11:32 [facility] COMPARISON: No previous studies available for comparison. INDICATIONS : Left chest pain. Angina. DOSE: 25.4 mCi Tc99m Myoview at stress. 8.5 mCi Tc99m Myoview at rest. 0.4 mg Lexiscan STRESS SYMPTOMS: Dyspnea. EJECTION FRACTION: 70% MEDICAL HISTORY : Hypercholesterolemia. Hypertension. Gastroesophageal reflux disease. Former smoker. SURGICAL HISTORY : Hysterectomy. ENCOUNTER: Initial ACUITY: 4 - 6 months PAIN SCALE: 10/10 LOCATION: Left chest TECHNIQUE: The patient underwent pharmacologic stress with infusion of prescribed dose. Continuous ECG tracing was monitored during stress. Gated SPECT imaging was performed after stress and conventional SPECT i maging was performed at rest. The examination was performed on a SPECT/CT scanner, both attenuation and non-corrected datasets were reviewed. FINDINGS: DISTRIBUTION: The maximum perfused segment at stress is in the anterior wall. PERFUSION STUDY: The pattern of perfusion at stress is within normal limits. GATED STUDY: There is intact wall motion and thickening without hypokinetic or dyskinetic segments. CONCLUSION: 1. No evidence of fixed or reversible perfusion abnormalities. 2. Normal wall motion and ejection fraction. RISK CATEGORY: Low (<1% Annual Mortality Rate) Rickie Che MD on August 26, 2017 at 12:59 Board Certified Radiologist. This report was verified electronically.
--- NOTE | 2017-08-26 13:24 | HHI.DCPOC ---
Discharge Care Plan Diagnosis: (1) Chest pain (2) Hypertension (3) Hyperlipidemia (4) History of CVA (cerebrovascular accident) Goals to Promote Your Health * To prevent worsening of your condition and complications * To maintain your health at the optimal level Directions to Meet Your Goals Take your medications as prescribed Follow your dietary instruction Follow activity as directed Keep your appointments as scheduled Take your immunizations and boosters as scheduled If your symptoms worsen call your PCP, if no PCP go to Urgent Care Center or Emergency Room Smoking is Dangerous to Your Health. Avoid second hand smoke Call the 24-hour hour crisis hotline for domestic abuse at Karlos Lantigua Aug 26, 2017 13:24
--- NOTE | 2017-08-26 14:22 | TR ---
Date Performed: 08/26/2017 Time Performed: 11:54:17 DOCTOR: Edwardo Cheney DRUG LIST: CLINICAL HISTORY: CHEST PAIN REASON FOR TEST: CHEST PAIN REASON FOR ENDING: OBSERVATION: CONCLUSION: Lexiscan stress test was performed under standard four minute protocol. Radionuclid e was injected one minute prior to ending the test. No electrocardiographic abormalities were present to suggest ischemia. Nuclear imaging and interpretation are pending. COMMENTS:
== END 2017-08-26 14:57 | disposition home or self-care (01) ==
LOC: NEPC 13:02 → NEDA 16:21 → NEPGCP 18:57
DX: R07.9 Chest pain, unspecified (principal); I10 Essential (primary) hypertension; E78.5 Hyperlipidemia, unspecified; G93.2 Benign intracranial hypertension; Z86.73 Personal history of transient ischemic attack (TIA), and cerebral infarction without residual deficits; K21.9 Gastro-esophageal reflux disease without esophagitis; Z79.01 Long term (current) use of anticoagulants; M19.90 Unspecified osteoarthritis, unspecified site; Z79.899 Other long term (current) drug therapy; Z87.891 Personal history of nicotine dependence; Z90.710 Acquired absence of both cervix and uterus
CPT/HCPCS: 71046; 78452; 80048; 82550; 82552; 83735; 84484; 85025; 85610; 85730; 93005; 93017; 96374; 99285; A9502; G0378; J2270; J2785

== ENCOUNTER 2017-09-06 15:20 | Emergency (ER) | payer SELFPAY ==
[~2017-09-06] VITALS: Ht 170.2 cm; Wt 92.0 kg
[~2017-09-06 15:20] MED LIST changes: +ANUC25SU PR; -BACL10TA PO; -CALC1TAB87 PO; +CALCTAB94 PO; +CELE200C PO; +CHLO25TA2 PO; +DIOV160T6 PO; -DIVA250ER PO; -GABA300C5 PO; -LISI40TA PO; +MULTTAB67 PO; -TRAM50TA PO; -VERA120T3 PO; +VITA2000 PO; +ZANT150T2 PO; -ZOLP10TA3 PO; +[UNRECOGNIZED DRUG - CODE] PO
[2017-09-06 15:29] VITALS: BP 130/91; PULSE 81; RESP 17; TEMP 97.9; O2SAT 100
--- NOTE | 2017-09-06 16:19 | RADRPT ---
EXAM DATE/TIME: 09/06/2017 15:42 [facility] COMPARISON: CHEST PA & LAT, August 25, 2017, 14:30. INDICATIONS : Chest pain with shortness of breath, leg swelling. MEDICAL HISTORY : None. SURGICAL HISTORY : None. ENCOUNTER: Initial ACUITY: 1 week PAIN SCORE: 10/10 LOCATION: Left chest FINDINGS: Underinflated frontal and lateral views of the chest demonstrate a normal-sized cardiac silhouette. T here is mild bibasilar airspace opacity. No pleural effusion or pneumothorax is identified. The bones and soft tissues demonstrate no acute finding. CONCLUSION: Underinflation with mild bibasilar opacity. This could represent atelectasis or mild interstitial opa city which could indicate edema. Dario Martinez MD on September 06, 2017 at 16:14 Board Certified Radiologist. This report was verified electronically.
[2017-09-06 16:37] LABS: AUTOMATED NEUTROPHIL # 5.6 TH/MM3 (1.8-7.7); BASOPHIL % 0.5 % (0.0-2.0); EOSINOPHIL % 0.3 % (0.0-4.0); HEMATOCRIT 38.2 % (35.0-46.0); HEMOGLOBIN 12.6 GM/DL (11.6-15.3); LYMPH % 13.7 % (9.0-44.0); LYMPHOCYTE # 0.9 TH/MM3 (1.0-4.8); MEAN CELL VOLUME 86.1 FL (80.0-100.0); MEAN CORPUSCULAR HEMOGLOBIN 28.4 PG (27.0-34.0); MEAN PLATELET VOLUME 8.8 FL (7.0-11.0); MONO % 3.4 % (0.0-8.0); MONOCYTE # 0.2 TH/MM3 (0-0.9); NEUT % 82.1 % (16.0-70.0); PLATELET COUNT 261 TH/MM3 (150-450); RED BLOOD COUNT 4.44 MIL/MM3 (4.00-5.30); RED CELL DISTRIBUTION WIDTH 13.9 % (11.6-17.2); WHITE BLOOD COUNT 6.8 TH/MM3 (4.0-11.0)
[2017-09-06 16:46] LABS: PROTHROMBIN TIME - PATIENT 9.8 SEC (9.8-11.6)
[2017-09-06 16:49] VITALS: O2SAT 99
[2017-09-06] MEDS ORDERED: INDO25CA PO (17:02)
[2017-09-06 17:10] LABS: BICARBONATE 29.3 MEQ/L (21.0-32.0); BLOOD UREA NITROGEN 19 MG/DL (7-18); CALCIUM 9.7 MG/DL (8.5-10.1); CHLORIDE 105 MEQ/L (98-107); CREATININE 1.05 MG/DL (0.50-1.00); GLOMERULAR FILTRATION RATE 64 ML/MIN (>89); GLUCOSE,RANDOM 111 MG/DL (74-106); SODIUM (NA) 141 MEQ/L (136-145)
[2017-09-06 17:13] LABS: TROPONIN I LESS THAN 0.02 NG/ML (0.02-0.05)
--- NOTE | 2017-09-06 17:21 | PD ---
HPI Chief Complaint: Chest Pain Time Seen by Provider: 16:45 Travel History International Travel<30 days: No Contact w/Intl Traveler<30days: No Traveled to known affect area: No History of Present Illness HPI 62 y/o female presents with chest pain over the past couple weeks. She confirms she recently was in the hospital with a normal stress test. She went to her primary today who prescribed an anti-inflammatory and then was that her machine operator packaging who is doing an ultrasound of her heart but given the significant pain he wanted her to get a CAT scan of her chest and sent her here. She denies any new complaints since her discharge. Quality pain is sharp. Severity is moderate. Pain is worse if you touch the area or moves. She denies other specific modifying factors. She denies recurrent history of this. She states Dr. Mccormack is her machine operator packaging. PFSH Past Medical History Hx Anticoagulant Therapy: Yes Arthritis: Yes Blood Disorders: No Heart Rhythm Problems: No Cancer: No Cardiac Catheterization: Yes Cardiovascular Problems: Yes High Cholesterol: Yes Chemotherapy: No Chest Pain: Yes Congestive Heart Failure: No Cerebrovascular Accident: Yes (CVA 2005) Diabetes: No Diminished Hearing: No Endocrine: No Gastrointestinal Disorders: Yes GERD: Yes Genitourinary: No Headaches: Yes Hypertension: Yes Immune Disorder: No Musculoskeletal: Yes (1986 BACK BRACE FOR DISK PAIN, ) Neurologic: Yes (TIA,CVA ) Psychiatric: No Reproductive: No Respiratory: No Migraines: Yes Radiation Therapy: No Seizures: No ?: Not Menopausal: Yes Past Surgical History Abdominal Surgery: Yes Coronary Artery Bypass Graft: No Genitourinary Surgery: Yes (BLADDER SURGERY) Gynecologic Surgery: Yes Hysterectomy: Yes Tonsillectomy: Yes Other Surgery: Yes Social History Alcohol Use: No Tobacco Use: No Substance Use: No Allergies-Medications (Allergen,Severity, Reaction): Coded Allergies: clonidine (Unverified Allergy, Intermediate, Hypotension, 09/06/17) "blood pressure too low" Reported Meds & Prescriptions Reported Meds & Active Scripts Active Reported Indomethacin 25 Mg Cap 25 Mg PO TID Take with food, milk, or antacids to decrease stomach adverse effects. Chlorthalidone 25 Mg Tab 25 Mg PO DAILY Diovan (Valsartan) 160 Mg Tab 160 Mg PO DAILY Vitamin D3 (Cholecalciferol) 2,000 Unit Cap 2,000 Units PO BID Multiple Vitamin 1 Tab 1 Tab PO DAILY Fish Oil Concentrate ([place]-3 Fatty Acids) 1,000 Mg Capsule 1,000 Mg PO DAILY Zantac (Ranitidine HCl) 150 Mg Tab 150 Mg PO HS Anucort-Hc (Hydrocortisone Acetate (Rectal) 25 Mg Sup 25 Mg MS HS PRN Calcium 600 (Calcium Carbonate) 600 Mg Calcium (1500 Mg) Tab 600 Mg PO DAILY Tylenol Extra Strength (Acetaminophen) 500 Mg Tablet 500 Mg PO Q4-6H PRN Clopidogrel (Clopidogrel Bisulfate) 75 Mg Tab 75 Mg PO DAILY Pantoprazole (Pantoprazole Sodium) 40 Mg Tab 40 Mg PO BID Take 30 minutes before breakfast and dinner Atorvastatin (Atorvastatin Calcium) 40 Mg Tab 40 Mg PO HS Diamox Sequels ER 12 HR (Acetazolamide) 500 Mg Cap 500 Mg PO Q12HR Review of Systems Except as stated in HPI: all other systems reviewed are Neg Physical Exam Narrative GENERAL: 62-year-old female in no apparent distress SKIN: Focused skin assessment warm/dry. HEAD: Atraumatic. Normocephalic. EYES: Pupils equal and round. No scleral icterus. No injection or drainage. ENT: No nasal bleeding or discharge. Mucous membranes pink and moist. NECK: Trachea midline. No JVD. CARDIOVASCULAR: Regular rate and rhythm. RESPIRATORY: No accessory muscle use. Clear to auscultation. Breath sounds equal bilaterally. GASTROINTESTINAL: Abdomen soft, non-tender, nondistended. MUSCULOSKELETAL: No obvious deformities. No clubbing. No cyanosis. NEUROLOGICAL: Awake and alert. No obvious cranial nerve deficits. Motor grossly within normal limits. Normal speech. PSYCHIATRIC: Appropriate mood and affect; insight and judgment normal. Data Data Last Documented VS Vital Signs Date Time Temp Pulse Resp B/P (MAP) Pulse Ox O2 Delivery O2 Flow Rate FiO2 09/06/17 18:41 75 17 119/70 (86) 95 Room Air 09/06/17 15:29 97.9 Orders Orders Electrocardiogram (09/06/17 15:32) Complete Blood Count With Diff (09/06/17 15:32) Basic Metabolic Panel (Bmp) (09/06/17 15:32) Ckmb (Isoenzyme) Profile (09/06/17 15:32) Troponin I (09/06/17 15:32) Iv Access Insert/Monitor (09/06/17 15:32) Ecg Monitoring (09/06/17 15:32) Oxygen Administration (09/06/17 15:32) Oximetry (09/06/17 15:32) Prothrombin Time / Inr (Pt) (09/06/17 15:32) Chest, Pa & Lat (09/06/17 15:32) Ct Pulmonary Angiogram (09/06/17 ) B-Type Natriuretic Peptide (09/06/17 16:48) Sodium Chlorid 0.9% 500 Ml Inj (Ns 500 M (09/06/17 18:00) Iohexol 350 Inj (Omnipaque 350 Inj) (09/06/17 19:07) Labs Laboratory Tests Test 09/06/17 15:50 09/06/17 17:45 White Blood Count 6.8 TH/MM3 Red Blood Count 4.44 MIL/MM3 Hemoglobin 12.6 GM/DL Hematocrit 38.2 % Mean Corpuscular Volume 86.1 FL Mean Corpuscular Hemoglobin 28.4 PG Mean Corpuscular Hemoglobin Concent 33.0 % Red Cell Distribution Width 13.9 % Platelet Count 261 TH/MM3 Mean Platelet Volume 8.8 FL Neutrophils (%) (Auto) 82.1 % Lymphocytes (%) (Auto) 13.7 % Monocytes (%) (Auto) 3.4 % Eosinophils (%) (Auto) 0.3 % Basophils (%) (Auto) 0.5 % Neutrophils # (Auto) 5.6 TH/MM3 Lymphocytes # (Auto) 0.9 TH/MM3 Monocytes # (Auto) 0.2 TH/MM3 Eosinophils # (Auto) 0.0 TH/MM3 Basophils # (Auto) 0.0 TH/MM3 CBC Comment DIFF FINAL Differential Comment Prothrombin Time 9.8 SEC Prothromb Time International Ratio 1.0 RATIO Blood Urea Nitrogen 19 MG/DL Creatinine 1.05 MG/DL Random Glucose 111 MG/DL Calcium Level 9.7 MG/DL Sodium Level 141 MEQ/L Potassium Level 3.8 MEQ/L Chloride Level 105 MEQ/L Carbon Dioxide Level 29.3 MEQ/L Anion Gap 7 MEQ/L Estimat Glomerular Filtration Rate 64 ML/MIN Total Creatine Kinase 91 U/L Troponin I LESS THAN 0.02 NG/ML B-Type Natriuretic Peptide LESS THAN 2 PG/ML MDM Medical Decision Making Medical Screen Exam Complete: Yes Emergency Medical Condition: Yes Medical Record Reviewed: Yes (Past history confirmed) Interpretation(s) CBC & BMP Diagram 09/06/17 15:50 Calcium Level 9.7 Last 24 hours Impressions Chest X-Ray 09/06/17 1532 Signed Impressions: Service Date/Time: , September 06, 2017 15:42 - CONCLUSION: Underinflation with mild bibasilar opacity. This could represent atelectasis or mild interstitial opacity which could indicate edema. Dario Martinez MD Differential Diagnosis PE, musculoskeletal, atypical cardiac Narrative Course We will check blood work, CT pulmonary and reevaluate Physician Communication Physician Communication Dr. Mccormack requests CT pulmonary oncoming physician to follow ct and reevaluate Ella Haney MD Sep 06, 2017 17:21
[2017-09-06] MEDS ORDERED: SODIUM CHLORID 0.9% 500 ML INJ 500 ML IV ONE (18:00)
[2017-09-06 18:41] VITALS: BP 119/70; PULSE 75; RESP 17; O2SAT 95
[2017-09-06] MEDS ORDERED: IOHEXOL 350 MG/ML 10 ML VIAL (for RAD DIAG) IVCONTRAST ONE (19:07)
--- NOTE | 2017-09-06 19:32 | RADRPT ---
EXAM DATE/TIME: 09/06/2017 18:58 [facility] COMPARISON: CHEST PA & LAT, September 06, 2017, 15:42. INDICATIONS : Chest pain and short of breath. IV CONTRAST: 55 cc Omnipaque 350 (iohexol) IV RADIATION DOSE: 10.55 CTDIvol (mGy) MEDICAL HISTORY : Cerebrovascular disease. Cardiovascular disease Gastroesophageal reflux disease.Hypertension. SURGICAL HISTORY : Hysterectomy. ENCOUNTER: Initial ACUITY: 2 weeks PAIN SCALE: 7/10 LOCATION: Bilateral chest TECHNIQUE: Volumetric scanning of the chest was performed using a pulmonary embolism protocol MIP images were re constructed. Using automated exposure control and adjustment of the mA and/or kV according to patien t size, radiation dose was kept as low as reasonably achievable to obtain optimal diagnostic quality images. DICOM format image data is available electronically for review and comparison. Follow-up recommendations for detected pulmonary nodules are based at a minimum on nodule size and pa tient risk factors according to Fleischner Society Guidelines. FINDINGS: PULMONARY ARTERIES: No filling defects are seen in the pulmonary arteries through the segmental level. LUNGS: There is no consolidation or pneumothorax . No concerning pulmonary nodule is visualized. PLEURAE: There is no pleural thickening or pleural effusion. MEDIASTINUM: There is good visualization of the great vessels of the middle mediastinum. No evidence of mediastin al or hilar adenopathy/mass. MUSCULOSKELETAL: Within normal limits for patient age. MISCELLANEOUS: The visualized upper abdominal organs demonstrate no acute abnormality. CONCLUSION: Negative exam with no evidence of pulmonary emboli. Regis Lemon MD on September 06, 2017 at 19:28 Board Certified Radiologist. This report was verified electronically.
[2017-09-06 19:49] VITALS: BP 143/92; PULSE 79; RESP 16; O2SAT 100
[2017-09-06] MEDS ORDERED: KETOROLAC TROMETHAMINE 30 MG/ML (IVP) VIAL IV PUSH ONE (20:00)
[2017-09-06] MEDS ORDERED: TRAM50TA PO (21:48)
--- NOTE | 2017-09-06 21:48 | PD ---
Physical Exam Date Seen by Provider: Sep 06, 2017 Time Seen by Provider: 20:00 Narrative Patient is a 62-year-old female who was in Dr. Mccormack's office today and her chest pain sent her to the ER to rule out CTA done by the prior MD I was to follow-up a CTA repeated troponin after 3 hours it was negative the CTA is negative she has been seen by multiple providers for this chronic what seems to be muscular pain in her chest and will be discharged home Toradol given IV with good results Data Data Last Documented VS Vital Signs Date Time Temp Pulse Resp B/P (MAP) Pulse Ox O2 Delivery O2 Flow Rate FiO2 09/06/17 21:58 09/06/17 19:49 79 16 100 Room Air 09/06/17 15:29 97.9 Orders Orders Electrocardiogram (09/06/17 15:32) Complete Blood Count With Diff (09/06/17 15:32) Basic Metabolic Panel (Bmp) (09/06/17 15:32) Ckmb (Isoenzyme) Profile (09/06/17 15:32) Troponin I (09/06/17 15:32) Iv Access Insert/Monitor (09/06/17 15:32) Ecg Monitoring (09/06/17 15:32) Oxygen Administration (09/06/17 15:32) Oximetry (09/06/17 15:32) Prothrombin Time / Inr (Pt) (09/06/17 15:32) Chest, Pa & Lat (09/06/17 15:32) Ct Pulmonary Angiogram (09/06/17 ) B-Type Natriuretic Peptide (09/06/17 16:48) Sodium Chlorid 0.9% 500 Ml Inj (Ns 500 M (09/06/17 18:00) Iohexol 350 Inj (Omnipaque 350 Inj) (09/06/17 19:07) Ketorolac Inj (Toradol Inj) (09/06/17 20:00) Troponin I (09/06/17 20:26) Electrocardiogram (09/06/17 ) Ed Discharge Order (09/06/17 21:45) Labs Laboratory Tests Test 09/06/17 15:50 09/06/17 17:45 09/06/17 20:30 White Blood Count 6.8 TH/MM3 Red Blood Count 4.44 MIL/MM3 Hemoglobin 12.6 GM/DL Hematocrit 38.2 % Mean Corpuscular Volume 86.1 FL Mean Corpuscular Hemoglobin 28.4 PG Mean Corpuscular Hemoglobin Concent 33.0 % Red Cell Distribution Width 13.9 % Platelet Count 261 TH/MM3 Mean Platelet Volume 8.8 FL Neutrophils (%) (Auto) 82.1 % Lymphocytes (%) (Auto) 13.7 % Monocytes (%) (Auto) 3.4 % Eosinophils (%) (Auto) 0.3 % Basophils (%) (Auto) 0.5 % Neutrophils # (Auto) 5.6 TH/MM3 Lymphocytes # (Auto) 0.9 TH/MM3 Monocytes # (Auto) 0.2 TH/MM3 Eosinophils # (Auto) 0.0 TH/MM3 Basophils # (Auto) 0.0 TH/MM3 CBC Comment DIFF FINAL Differential Comment Prothrombin Time 9.8 SEC Prothromb Time International Ratio 1.0 RATIO Blood Urea Nitrogen 19 MG/DL Creatinine 1.05 MG/DL Random Glucose 111 MG/DL Calcium Level 9.7 MG/DL Sodium Level 141 MEQ/L Potassium Level 3.8 MEQ/L Chloride Level 105 MEQ/L Carbon Dioxide Level 29.3 MEQ/L Anion Gap 7 MEQ/L Estimat Glomerular Filtration Rate 64 ML/MIN Total Creatine Kinase 91 U/L Troponin I LESS THAN 0.02 NG/ML LESS THAN 0.02 NG/ML B-Type Natriuretic Peptide LESS THAN 2 PG/ML [facility] Medical Record Reviewed: Yes Supervised Visit with ROMARIO: No Narrative Course 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
--- NOTE | 2017-09-08 13:14 | EKG ---
Date Performed: 09/06/2017 Time Performed: 20:33:29 PTAGE: 62 years EKG: NORMAL Sinus rhythm POSSIBLE OLD INFERIOR MYOCARDIAL INFARCTION ABNORMAL ECG Slight flattened T-waves, but no change fro m prior tracing. PREVIOUS TRACING : 09/06/2017 15.57 DOCTOR: Simon Cornelius Interpretating Date/Time 09/08/2017 13:13:16
--- NOTE | 2017-09-08 13:14 | EKG ---
Date Performed: 09/06/2017 Time Performed: 15:57:42 PTAGE: 62 years EKG: Sinus rhythm POSSIBLE OLD INFERIOR MYOCARDIAL INFARCTION ABNORMAL ECG Nonspecific ST-T abnormalities have improve d since prior tracing. PREVIOUS TRACING : 08/26/2017 02.14 DOCTOR: Simon Cornelius Interpretating Date/Time 09/08/2017 13:12:32
== END 2017-09-06 22:06 | disposition home or self-care (01) ==
LOC: NEPC 15:20
DX: R07.89 Other chest pain (principal); G89.29 Other chronic pain; E78.00 Pure hypercholesterolemia, unspecified; I10 Essential (primary) hypertension; K21.9 Gastro-esophageal reflux disease without esophagitis
CPT/HCPCS: 71046; 71275; 80048; 82550; 83880; 84484; 85025; 85610; 93005; 96361; 96374; 99285; J1885; J7040; Q9967

== ENCOUNTER 2017-09-14 05:35 | Day surgery (SDC) | payer OTHER ==
[~2017-09-14 05:35] MED LIST changes: -CELE200C PO; +INDO25CA PO; +TRAM50TA PO
[2017-09-14] MEDS ORDERED: NS 1000 ML IV SCH (06:15)
[2017-09-14] MEDS ORDERED: MUPIROCIN 2% OINT 1 APPLIC/GM SYR NASAL SCH (06:15)
[2017-09-14] MEDS ORDERED: CHLORHEXIDINE GLUCONATE 2 % 1 PACK (2 CLOTHS) TOPICAL SCH (06:15)
[2017-09-14] MEDS ORDERED: CEFAZOLIN INJ 2,000 MG in SODIUM CHLORIDE 0.9% INJ 100 ML IV SCH (06:15)
[2017-09-14] MEDS ORDERED: POVIDONE IODINE 5% (ANTISEPSIS KIT) 4 APPLICATIONS EACH NARE SCH (06:15)
[2017-09-14] MEDS ORDERED: MIDAZOLAM HCL 5 MG/ML VIAL (1 ML) ONE (07:14)
[2017-09-14] MEDS ORDERED: ceFAZolin 2 GM/DEX PREMIX 50 ML IV SCH ×2 (07:15→07:30)
[2017-09-14] MEDS ORDERED: MIDAZOLAM HCL 2 MG/2 ML VIAL IV ONE (07:40)
--- NOTE | 2017-09-14 08:09 | MA ---
cc: Joel Murillo MD DATE: 09/14/2017 DATE OF PROCEDURE: 09/14/2017 INDICATION FOR PROCEDURE: Cerebrovascular accident. PROCEDURES PERFORMED: 1. 15 minutes moderate IV sedation. 2. Loop recorder insertion. DESCRIPTION OF PROCEDURE: The patient was brought to the DOC Unit in the postabsorptive state. After informed consent was obtained, 2 mg of Versed and 25 mcg of fentanyl and was given for moderate IV sedation. Next, a [employer] LINQ, loop recorder was inserted subcutaneously to the left chest. The patient tolerated the procedure well without any apparent complications. Tachybrady pause and atrial fibrillation detection was enabled. The initial R-wave was 0.26 millivolts. The serial number was [id number]. Joel Murillo MD [facility] , 07:58 AM , 08:07 AM
[2017-09-14] MEDS ORDERED: OMEGCAP PO (08:48)
[2017-09-14] MEDS ORDERED: ALBU.5I NEB (08:48)
[2017-09-14] MEDS ORDERED: ANUC25SU RECTAL (08:48)
[2017-09-14] MEDS ORDERED: MULTTAB67 PO (08:48)
[2017-09-14] MEDS ORDERED: TYLE325T PO (08:51)
== END 2017-09-14 09:22 | disposition home or self-care (01) ==
LOC: HDOC 05:35 → HDIC 05:35 → HDOC 09:22
PROVIDERS: ATTEND Nuclear Medicine Nuclear Cardiology
DX: I63.9 Cerebral infarction, unspecified (principal)
CPT/HCPCS: 33282; C1764; J0690; J2250; J3010

== ENCOUNTER 2018-02-09 20:55 | Observation (INO) ==
--- NOTE | 2018-02-09 22:05 | XR ---
EXAM DATE: 02/09/2018 9:57 PM EDT AGE/SEX: 62 years / Female INDICATIONS: Shortness of breath. CLINICAL DATA: This is the patient's initial encounter. Patient reports that signs and symptoms have been present for 1 day and indicates a pain score of 0/10. MEDICAL/SURGICAL HISTORY: . Hypercholesterolemia. Hypertension. Gastroesophageal reflux disease . Former smoker. Hysterectomy. Loop recorder. COMPARISON: [facility] [place]ST [place] & LAT, 09/06/2017. . FINDINGS: Single AP view of the chest. The lungs are clear. Cardiomediastinal silhouette within nor mal limits. No evidence of pleural effusion or pneumothorax. CONCLUSION: No acute cardiopulmonary disease identified. Electronically signed by: Ronnell Verdin MD 02/09/2018 10:03 PM EDT
[2018-02-09 22:24] LABS: Baso % (Auto) 0.5 % (0.0-2.0); Eos # (Auto) 0.1 th/mm3 (0.0-0.4); Eos % (Auto) 1.4 % (0.0-4.0); Hematocrit 40.4 % (35.0-46.0); Hemoglobin 12.9 gm/dL (11.6-15.3); Lymph # (Auto) 1.8 th/mm3 (1.0-4.8); Lymph % (Auto) 30.4 % (9.0-44.0); Mean Corpuscular Volume 87.5 fL (80.0-100.0); Mean Platelet Volume 8.5 fL (7.0-11.0); Mono # (Auto) 0.6 th/mm3 (0.0-0.9); Mono % (Auto) 9.9 % (0.0-8.0); Neut # (Auto) 3.3 th/mm3 (1.8-7.7); Neut % (Auto) 57.8 % (16.0-70.0); Platelet Count 273 th/mm3 (150-450); Red Blood Count 4.62 mil/mm3 (4.00-5.30); Red Cell Distribution Width 15.1 % (11.6-17.2); White Blood Count 5.8 th/mm3 (4.0-11.0)
--- NOTE | 2018-02-09 22:30 | ED ---
HPI General Chief complaint: Respiratory Symptoms Stated complaint: Sob Time Seen by Provider: 02/09/18 21:34 History of Present Illness HPI narrative: This is a 62-year-old female who presents for evaluation of dyspnea. Symptoms started yesterday. She reports intermittent dyspnea with exertion, worse over the past 2 hours, which prompted evaluation. She reports palpitations this evening as well. She has never had these symptoms before. She denies chest pain, cough, congestion, dizziness, lightheadedness, nausea, vomiting, abdominal pain, recent illness, recent travel, diarrhea. She reports a history of hypertension. She also reports that she had a loop recorder placed in August by her behavior interventionist Dr. Murillo. She reports that recently she was told that there was an electrical disturbance and he is going to refer her to Dr. Waller. She also reports a history of TIA, CVA, pseudotumor cerebri. She has no other complaints at this time. Related Data Home Medications Medication Instructions Recorded Confirmed acetaminophen [Tylenol Extra 500 mg PO Q4H PRN 02/09/18 02/09/18 Strength] acetazolamide 500 mg PO BID 02/09/18 02/09/18 atorvastatin 40 mg PO DAILY 02/09/18 02/09/18 calcium carbonate [Calcium 600] 600 mg PO DAILY 02/09/18 02/09/18 cholecalciferol (vitamin D3) 2,000 unit PO BID 02/09/18 02/09/18 [Vitamin D3] clopidogrel 75 mg PO DAILY 02/09/18 02/09/18 hydrocortisone acetate 25 mg WA HS PRN 02/09/18 02/09/18 losartan 100 mg PO DAILY 02/09/18 02/09/18 multivitamin 1 tab PO DAILY 02/09/18 02/09/18 omega 5-txw-[id number]-fish oil [Fish Oil] 1,000 mg PO DAILY 02/09/18 02/09/18 pantoprazole 40 mg PO BID 02/09/18 02/09/18 ranitidine HCl 150 mg PO HS 02/09/18 02/09/18 Allergies Allergy/AdvReac Type Severity Reaction Status Date / Time clonidine Allergy Intermediate Hypotension Verified 02/09/18 21:27 tramadol Allergy Nausea Verified 02/09/18 21:27 Review of Systems ROS: all other systems reviewed are negative [facility] Medical History Medical History CVA (cerebral vascular accident) (Acute) H/O: hysterectomy (Acute) HTN (hypertension) (Acute) Holter monitor, abnormal (Acute) Pseudotumor (Acute) TIA (transient ischemic attack) (Acute) Surgical History Surgical History Hx of tonsillectomy (Acute) Social History Social History Substance History: No History of Abuse Second Hand Smoke Exposure: No Smoking Status: Former smoker How Often Do You Have a Drink Containing Alcohol: Never Recent Travel in [facility] within the Last 8 Weeks: No Recent Out of Country Travel within the Last 8 Weeks: No Immunization History Tetanus Immunization: Unsure Hx Influenza Vaccine This Season: Yes Exam Narrative Exam Narrative: GENERAL: This is a well-developed well-nourished female who appears slightly anxious. SKIN: Warm and dry. HEAD: Atraumatic. Normocephalic. EYES: Pupils equal and round. No scleral icterus. No injection or drainage. ENT: No nasal bleeding or discharge. Mucous membranes pink and moist. NECK: Trachea midline. No JVD. CARDIOVASCULAR: Regular rate and rhythm. No murmur appreciated. RESPIRATORY: No accessory muscle use. Clear to auscultation. Breath sounds equal bilaterally. GASTROINTESTINAL: Abdomen soft, non-tender, nondistended. Hepatic and splenic margins not palpable. MUSCULOSKELETAL: No obvious deformities. No clubbing. No cyanosis. No edema. NEUROLOGICAL: Awake and alert. No obvious cranial nerve deficits. Motor grossly within normal limits. Normal speech. PSYCHIATRIC: Appropriate mood and affect; insight and judgment normal. Course Initial Documented Vital Signs Temperature 97.5 F L 02/09/18 21:28 Pulse Rate 77 02/09/18 21:28 Respiratory Rate 24 02/09/18 21:28 Blood Pressure 161/88 H 02/09/18 21:28 Pulse Oximetry 99 02/09/18 21:28 Last Documented Vital Signs Temperature 97.5 F L 02/09/18 21:28 Pulse Rate 82 02/09/18 21:54 Respiratory Rate 17 02/09/18 21:44 Blood Pressure 160/90 H 02/09/18 21:44 Pulse Oximetry 99 02/09/18 22:00 Medical Decision Making ROMARIO Attestation ROMARIO supervised visit: Yes Attestation: I, Dr. Vasquez, have reviewed the advance practice practitioner's documentation and am in agreement, met with the patient face to face, made the diagnosis, and the medical decision making was done by me. *My assessment and Findings: Respiratory distress with palpitations and near syncope. The patient has reported history of an abnormal finding on loop recorder. Concern is that this may be paroxysmal A. fib or worse yet, ventricular ectopy. Since we do not have this information available to us, the patient will be admitted under observation. Case was discussed with Dr. Lucille [facility]. The patient will be admitted under telemetry with Dr. Radford as the admitting physician. [facility] Narrative Medical decision making narrative: The patient was placed on ECG monitoring pulse oximetry. A 12-lead EKG was ordered. Lab work, chest x-ray will be obtained. Patient to be admitted for observation under telemetry. Case was discussed with Dr. Lucille Daugherty, [facility] hospitalist service. Medical Screen Exam Complete: Yes Emergency Medical Condition: Yes Differential Diagnosis Differential Diagnosis: Pneumothorax, pulmonary edema, pulmonary embolism, acute coronary syndrome, pericardial effusion Lab Data Result diagrams: 02/09/18 21:55 02/09/18 21:55 Lab Results 02/09/18 02/09/18 02/09/18 Range/Units 21:55 21:55 21:55 WBC 5.8 (4.0-11.0) th/mm3 RBC 4.62 (4.00-5.30) mil/mm3 Hgb 12.9 (11.6-15.3) gm/dL Hct 40.4 (35.0-46.0) % MCV 87.5 (80.0-100.0) fL MCH 28.0 (27.0-34.0) pg MCHC 32.0 (32.0-36.0) % RDW 15.1 (11.6-17.2) % Plt Count 273 (150-450) th/mm3 MPV 8.5 (7.0-11.0) fL Neut % (Auto) 57.8 (16.0-70.0) % Lymph % (Auto) 30.4 (9.0-44.0) % Collier % (Auto) 9.9 H (0.0-8.0) % Eos % (Auto) 1.4 (0.0-4.0) % Baso % (Auto) 0.5 (0.0-2.0) % Neut # (Auto) 3.3 (1.8-7.7) th/mm3 Lymph # (Auto) 1.8 (1.0-4.8) th/mm3 Collier # (Auto) 0.6 (0.0-0.9) th/mm3 Eos # (Auto) 0.1 (0.0-0.4) th/mm3 Baso # (Auto) 0.0 (0.0-0.2) th/mm3 WBC Differential . Differential Comment Auto diff final PT 9.7 L (9.8-11.6) sec INR 1.0 Ratio APTT 27.6 (24.3-30.1) sec D-Dimer Quant (PE/DVT) (0.00-0.50) mg/L FEU Sodium 142 (136-145) meq/L Potassium 3.4 L (3.5-5.1) meq/L Chloride 111 H (98-107) meq/L Carbon Dioxide 22.1 (21.0-32.0) meq/L Anion Gap 9 (5-15) meq/L BUN 15 (7-18) mg/dL Creatinine 0.93 (0.50-1.00) mg/dL Estimated GFR 74 L (>89) mL/min Random Glucose 105 (74-106) mg/dL Calcium 9.6 (8.5-10.1) mg/dL Magnesium 2.1 (1.5-2.5) mg/dL Total Bilirubin 0.2 (0.2-1.0) mg/dL AST 19 (15-37) U/L ALT 21 (10-53) U/L Alkaline Phosphatase 82 (45-117) U/L Total Creatine Kinase 114 (26-192) U/L CK-MB (CK-2) Less than 1.0 (0.5-3.6) ng/mL Troponin I Less than 0.02 L (0.02-0.05) ng/mL B-Natriuretic Peptide (0-100) pg/mL Total Protein 8.2 (6.4-8.2) g/dL Albumin 3.7 (3.4-5.0) g/dL 02/09/18 02/09/18 Range/Units 21:55 21:55 WBC (4.0-11.0) th/mm3 RBC (4.00-5.30) mil/mm3 Hgb (11.6-15.3) gm/dL Hct (35.0-46.0) % MCV (80.0-100.0) fL MCH (27.0-34.0) pg MCHC (32.0-36.0) % RDW (11.6-17.2) % Plt Count (150-450) th/mm3 MPV (7.0-11.0) fL Neut % (Auto) (16.0-70.0) % Lymph % (Auto) (9.0-44.0) % Collier % (Auto) (0.0-8.0) % Eos % (Auto) (0.0-4.0) % Baso % (Auto) (0.0-2.0) % Neut # (Auto) (1.8-7.7) th/mm3 Lymph # (Auto) (1.0-4.8) th/mm3 Collier # (Auto) (0.0-0.9) th/mm3 Eos # (Auto) (0.0-0.4) th/mm3 Baso # (Auto) (0.0-0.2) th/mm3 WBC Differential Differential Comment PT (9.8-11.6) sec INR Ratio APTT (24.3-30.1) sec D-Dimer Quant (PE/DVT) 0.38 (0.00-0.50) mg/L FEU Sodium (136-145) meq/L Potassium (3.5-5.1) meq/L Chloride (98-107) meq/L Carbon Dioxide (21.0-32.0) meq/L Anion Gap (5-15) meq/L BUN (7-18) mg/dL Creatinine (0.50-1.00) mg/dL Estimated GFR (>89) mL/min Random Glucose (74-106) mg/dL Calcium (8.5-10.1) mg/dL Magnesium (1.5-2.5) mg/dL Total Bilirubin (0.2-1.0) mg/dL AST (15-37) U/L ALT (10-53) U/L Alkaline Phosphatase (45-117) U/L Total Creatine Kinase (26-192) U/L CK-MB (CK-2) (0.5-3.6) ng/mL Troponin I (0.02-0.05) ng/mL B-Natriuretic Peptide 5 (0-100) pg/mL Total Protein (6.4-8.2) g/dL Albumin (3.4-5.0) g/dL Imaging Data Radiologist's impression: Chest X-Ray 02/09/18 21:47 CONCLUSION: No acute cardiopulmonary disease identified. Discharge Plan Discharge Disposition Patient Disposition: 30 Still Patient Discharge Details Diagnosis: Near syncope, Palpitations, Hypertension, Hypercholesterolemia Physicians Team ED Provider: Jacky Vasquez ED Midlevel Provider: Reji aDvies Primary Care Provider: ELEAZAR, Attending Provider: Martin Radford Rxs /Orders / Referrals /Forms Prescriptions: No Action multivitamin Tablet 1 tab PO DAILY RF: 0 atorvastatin 40 mg Tablet 40 mg PO DAILY RF: 0 acetazolamide 500 mg Capsule, Extended Release 500 mg PO BID RF: 0 clopidogrel 75 mg Tablet 75 mg PO DAILY RF: 0 acetaminophen [Tylenol Extra Strength] 500 mg Tablet 500 mg PO Q4H PRN (Reason: Pain) RF: 0 hydrocortisone acetate 25 mg Suppository 25 mg WA HS PRN (Reason: Hemorrhoids) RF: 0 calcium carbonate [Calcium 600] 600 mg calcium (1,500 mg) Tablet 600 mg PO DAILY RF: 0 pantoprazole 40 mg Tablet,Delayed Release (Dr/Ec) 40 mg PO BID RF: 0 ranitidine HCl 150 mg Tablet 150 mg PO HS RF: 0 losartan 100 mg Tablet 100 mg PO DAILY RF: 0 cholecalciferol (vitamin D3) [Vitamin D3] 2,000 unit Capsule 2,000 unit PO BID RF: 0 omega 5-lmq-[id number]-fish oil [Fish Oil] 1,000 mg (120 mg-180 mg) Capsule 1,000 mg PO DAILY RF: 0 Discharge Interventions Interventions: Vital Signs Last Done: 02/09/18 21:44 Status ED Status: Ready for Discharge
[2018-02-09 22:35] LABS: Activated Partial Thrombo Time 27.6 sec (24.3-30.1); Prothrombin Time 9.7 sec (9.8-11.6)
[2018-02-09 22:39] LABS: Alanine Aminotransferase 21 U/L (10-53)
[2018-02-09 22:42] LABS: Alkaline Phosphatase 82 U/L (45-117); Creatine Kinase 114 U/L (26-192); Total Protein 8.2 g/dL (6.4-8.2)
[2018-02-09 22:43] LABS: Albumin 3.7 g/dL (3.4-5.0); Anion Gap 9 meq/L (5-15); Aspartate Aminotransferase 19 U/L (15-37); Blood Urea Nitrogen 15 mg/dL (7-18); Calcium 9.6 mg/dL (8.5-10.1); Carbon Dioxide 22.1 meq/L (21.0-32.0); Chloride 111 meq/L (98-107); Glomerular Filtration Rate 74 mL/min (>89); Glucose,Random 105 mg/dL (74-106); Magnesium 2.1 mg/dL (1.5-2.5); Potassium 3.4 meq/L (3.5-5.1); Sodium 142 meq/L (136-145)
[2018-02-10] MEDS ORDERED: Bisacodyl 10 MG Supp RECTAL PRN (00:50)
[2018-02-10] MEDS ORDERED: Acetaminophen 325 MG Tablet PO PRN (00:50)
[2018-02-10] MEDS ORDERED: Hydrocortisone Acetate 25 MG Supp RECTAL PRN (00:54)
[2018-02-10] MEDS ORDERED: Temazepam 15 MG Capsule PO PRN (00:56)
[2018-02-10] MEDS: Calcium Carbonate 500 MG Tablet PO SCH (08:14)
--- NOTE | 2018-02-10 12:01 | P.HP ---
<Fina Del Toro W - Last Filed: 02/10/18 15:24> History of Present Illness Primary Care Physician: UNKNOWN Chief Complaint: intermitted shortness of breath with palpitations History of Present Illness: This is a 62-year-old female patient with past medical history which includes anxiety, GERD, migraine headaches, TIA, hypertension, hyperlipidemia, pseudotumor cerebri, obesity, TMJ and recent arrhythmia on outpatient loop recorder. Patient had loop recorder placed in August by her outpatient district manager postal service Dr. Murillo. She reports that recently she was told that there was an electrical disturbance and she was referred her to Dr. Waller. Patient presented to the ER for evaluation of dyspnea. Patient reports that Sunday and then again on Sunday patient had intermitted shortness of breath with palpations. these episodes last approximately 2 hours. Patient reports that her outpatient district manager postal service called her in metoprolol but she has not yet been able to get to the pharmacy to cook pickled meat prescription. She denies chest pain, cough, congestion, dizziness, lightheadedness, nausea, vomiting, abdominal pain , recent illness, recent travel, diarrhea. 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 caregiver for her 9 year old granddaughter Denies EtOH use Former tobacco use Family history: Reviewed and noncontributory - Diagnosis (1) Palpitations Review of Systems All other systems reviewed negative except as stated in [facility] - History History Provided By: Patient - Medical History Medical History: Medical History (Last Updated 02/09/18 @ 21:31 by Cherie Talbert) CVA (cerebral vascular accident) H/O: hysterectomy HTN (hypertension) Holter monitor, abnormal Pseudotumor TIA (transient ischemic attack) - Surgical History Surgical History: Surgical History (Last Updated 02/09/18 @ 21:31 by Cherie Talbert) Hx of tonsillectomy - Tobacco History Second Hand Smoke Exposure: No Tobacco Use In Past 30 Days: No Smoking Status: Former smoker Tobacco Type: Cigarettes - Alcohol History How Often Do You Have a Drink Containing Alcohol: Never - Substance Use History Substance History: No History of Abuse - Travel History Recent Travel in the [place] Within the Last 8 Weeks: No Recent Travel Out of the Country Within the Last 8 Weeks: No - Immunization History Tetanus Immunization: Unsure Hx Influenza Vaccine This Season: Yes Medications and Allergies Allergies Allergy/AdvReac Type Severity Reaction Status Date / Time clonidine Allergy Intermediate Hypotension Verified 02/09/18 21:27 tramadol Allergy Nausea Verified 02/09/18 21:27 Home Medications Medication Instructions Recorded Confirmed Type acetaminophen [Tylenol Extra 500 mg PO Q4H PRN 02/09/18 02/09/18 History Strength] acetazolamide 500 mg PO BID 02/09/18 02/09/18 History atorvastatin 40 mg PO DAILY 02/09/18 02/09/18 History calcium carbonate [Calcium 600] 600 mg PO DAILY 02/09/18 02/09/18 History cholecalciferol (vitamin D3) 2,000 unit PO BID 02/09/18 02/09/18 History [Vitamin D3] clopidogrel 75 mg PO DAILY 02/09/18 02/09/18 History hydrocortisone acetate 25 mg VT HS PRN 02/09/18 02/09/18 History losartan 100 mg PO DAILY 02/09/18 02/09/18 History multivitamin 1 tab PO DAILY 02/09/18 02/09/18 History omega 1-iei-[id number]-fish oil [Fish Oil] 1,000 mg PO DAILY 02/09/18 02/09/18 History pantoprazole 40 mg PO BID 02/09/18 02/09/18 History ranitidine HCl 150 mg PO HS 02/09/18 02/09/18 History Active Medications: Active Medications Acetaminophen (Tylenol) 650 mg PO Q4H PRN PRN Reason: Temp > 100.4 Acetazolamide (Diamox Sequels) 500 mg PO BID [facility] Last Admin: 02/10/18 08:15 Dose: 500 mg Al Hydroxide/Mg Hydroxide (Milk Of Magnesia Liq) 30 ml PO Q12H PRN PRN Reason: Mild Constipation Atorvastatin Calcium (Lipitor) 40 mg PO DAILY [facility] Last Admin: 02/10/18 08:14 Dose: 40 mg Bisacodyl (Dulcolax Supp) 10 mg RECTAL DAILY PRN PRN Reason: SEVERE CONSITIPATION Clopidogrel Bisulfate (Plavix) 75 mg PO DAILY [facility] Last Admin: 02/10/18 08:14 Dose: 75 mg Famotidine (Pepcid) 20 mg [address] [facility] Hydrocortisone Acetate (Hemorrhoidal Hc Supp) 25 mg RECTAL HS PRN PRN Reason: Hemorrhoids Lactulose (Lactulose Liq) 30 ml PO DAILY PRN PRN Reason: SEVERE CONSITIPATION Losartan Potassium (Cozaar) 100 mg PO DAILY [facility] Last Admin: 02/10/18 08:14 Dose: 100 mg Ondansetron HCl (Zofran Inj) 4 mg IV.PUSH Q6H PRN PRN Reason: NAUSEA OR VOMITING Pantoprazole Sodium (Protonix) 40 mg PO BID [facility] Last Admin: 02/10/18 08:14 Dose: 40 mg Sennosides (Senokot) 17.2 mg PO Q12H PRN PRN Reason: Moderate Constipation Temazepam (Restoril) 15 mg PO HS PRN PRN Reason: insmonia Last Admin: 02/10/18 02:48 Dose: 15 mg Vitamin D (Vitamin D3) 2,000 unit PO BID [facility] Last Admin: 02/10/18 08:14 Dose: 2,000 unit Exam Vital signs: Vital Signs 02/09/18 21:28 02/09/18 21:44 02/09/18 21:54 Temperature 97.5 F L Pulse Rate 77 75 82 Respiratory Rate 24 17 Blood Pressure 161/88 H 160/90 H Pulse Oximetry 99 100 99 02/09/18 22:00 02/10/18 01:27 02/10/18 01:34 Temperature 97.6 F Pulse Rate 83 73 Respiratory Rate 16 19 Blood Pressure 147/94 H 140/81 Pulse Oximetry 99 99 96 02/10/18 04:00 02/10/18 10:58 Temperature 97.6 F Pulse Rate 81 73 Respiratory Rate 16 Blood Pressure 138/68 Pulse Oximetry 97 Intake & Output 02/09/18 02/10/18 02/10/18 18:59 06:59 18:59 Intake Total 50 / 50 Balance 50 / 50 Weight 95.254 kg Intake: Oral 50 / 50 Other: # Voids 1 # Urine Diapers 0 Weight On Admission 95.254 kg Narrative: GENERAL: This is a well-nourished, well-developed patient, in no apparent distress. CARDIOVASCULAR: Regular rate and rhythm RESPIRATORY: Clear to auscultation. Breath sounds equal bilaterally. No wheezes , rales, or rhonchi. GASTROINTESTINAL: Abdomen soft, non-tender, nondistended. Normal active bowel sounds MUSCULOSKELETAL: Extremities without clubbing, cyanosis, or edema. NEURO: Alert & Oriented. Moves all ext x4 Results - Labs CBC & Chem 7: 02/09/18 21:55 02/09/18 21:55 Labs: Laboratory Results - last 24 hr 02/09/18 02/09/18 02/09/18 21:55 21:55 21:55 WBC 5.8 RBC 4.62 Hgb 12.9 Hct 40.4 MCV 87.5 MCH 28.0 MCHC 32.0 RDW 15.1 Plt Count 273 MPV 8.5 Neut % (Auto) 57.8 Lymph % (Auto) 30.4 [place] % (Auto) 9.9 H Eos % (Auto) 1.4 Baso % (Auto) 0.5 Neut # (Auto) 3.3 Lymph # (Auto) 1.8 [place] # (Auto) 0.6 Eos # (Auto) 0.1 Baso # (Auto) 0.0 WBC Differential . Differential Comment Auto diff final PT 9.7 L INR 1.0 APTT 27.6 D-Dimer Quant (PE/DVT) Sodium 142 Potassium 3.4 L Chloride 111 H Carbon Dioxide 22.1 Anion Gap 9 BUN 15 Creatinine 0.93 Estimated GFR 74 L Random Glucose 105 Calcium 9.6 Magnesium 2.1 Total Bilirubin 0.2 AST 19 ALT 21 Alkaline Phosphatase 82 Total Creatine Kinase 114 CK-MB (CK-2) Less than 1.0 Troponin I Less than 0.02 L B-Natriuretic Peptide Total Protein 8.2 Albumin 3.7 02/09/18 02/09/18 21:55 21:55 WBC RBC Hgb Hct MCV MCH MCHC RDW Plt Count MPV Neut % (Auto) Lymph % (Auto) [place] % (Auto) Eos % (Auto) Baso % (Auto) Neut # (Auto) Lymph # (Auto) [place] # (Auto) Eos # (Auto) Baso # (Auto) WBC Differential Differential Comment PT INR APTT D-Dimer Quant (PE/DVT) 0.38 Sodium Potassium Chloride Carbon Dioxide Anion Gap BUN Creatinine Estimated GFR Random Glucose Calcium Magnesium Total Bilirubin AST ALT Alkaline Phosphatase Total Creatine Kinase CK-MB (CK-2) Troponin I B-Natriuretic Peptide 5 Total Protein Albumin - Imaging Impressions Chest X-Ray 02/09/18 21:47 CONCLUSION: No acute cardiopulmonary disease identified. Caprini VTE Risk Assessment Caprini VTE Risk Assessment: No/Low Risk (score <= 1) Caprini Risk Assessment Model: Point Value = 1 Point Value = 2 Point Value = 3 Point Value = 5 Age 41-60 Minor surgery BMI > 25 kg/m2 Swollen legs Varicose veins or History of unexplained or recurrent spontaneous Oral contraceptives or hormone replacement Sepsis (< 1 month) Serious lung disease, including pneumonia (< 1 month) Abnormal pulmonary function Acute myocardial infarction Congestive heart failure (< 1 month) History of inflammatory bowel disease Medical patient at bed rest Age 61-74 Arthroscopic surgery Major open surgery (> 45 min) Laparoscopic surgery (> 45 min) Malignancy Confined to bed (> 72 hours) Immobilizing plaster cast Central venous access Age >= 75 History of VTE Family history of VTE Factor V Leiden Prothrombin [id number] Lupus anticoagulant Anticardiolipin antibodies Elevated serum homocysteine Heparin-induced thrombocytopenia Other congenital or acquired thrombophilia Stroke (< 1 month) Elective arthroplasty Hip, pelvis, or leg fracture Acute spinal cord injury (< 1 month) Prophylaxis Regimen: Total Risk Factor Score Risk Level Prophylaxis Regimen 0-1 Low Early ambulation 2 Moderate Order ONE of the following: *Sequential Compression Device (SCD) *Heparin 5000 units SQ BID 3-4 Higher Order ONE of the following medications: *Heparin 5000 units SQ TID *Enoxaparin/Lovenox 40 mg SQ daily (WT < 150 kg, CrCl > 30 mL/min) *Enoxaparin/Lovenox 30 mg SQ daily (WT < 150 kg, CrCl > 10-29 mL/min) *Enoxaparin/Lovenox 30 mg SQ BID (WT < 150 kg, CrCl > 30 mL/min) AND/OR *Sequential Compression Device (SCD) 5 or more Highest Order ONE of the following medications: *Heparin 5000 units SQ TID (Preferred with Epidurals) *Enoxaparin/Lovenox 40 mg SQ daily (WT < 150 kg, CrCl > 30 mL/min) *Enoxaparin/Lovenox 30 mg SQ daily (WT < 150 kg, CrCl > 10-29 mL/min) *Enoxaparin/Lovenox 30 mg SQ BID (WT < 150 kg, CrCl > 30 mL/min) AND *Sequential Compression Device (SCD) Assessment and Plan - Assessment (1) Palpitations Code(s): R00.2 - Palpitations Status: Acute Plan: This is a 62-year-old female patient with past medical history which includes anxiety, GERD, migraine headaches, TIA, hypertension, hyperlipidemia, pseudotumor cerebri, obesity, TMJ and recent arrhythmia on outpatient loop recorder. Patient had loop recorder placed in August by her outpatient district manager postal service Dr. Murillo. She reports that recently she was told that there was an electrical disturbance and she was referred her to Dr. Waller. Patient presented to the ER for evaluation of dyspnea. Patient reports that Sunday and then again on Sunday patient had intermitted shortness of breath with palpations. these episodes last approximately 2 hours. Patient reports that her outpatient district manager postal service called her in metoprolol but she has not yet been able to get to the pharmacy to cook pickled meat prescription. She denies chest pain, cough, congestion, dizziness, lightheadedness, nausea, vomiting, abdominal pain , recent illness, recent travel, diarrhea. Palpitations, dyspnea Possible arrhythmia Continuous telemetry monitoring Consult cardiology Dr. Waller, Per patient has had arrhythmia on loop recorder and was going to be referred to Dr. Waller for further evaluation Outpatient 2D echocardiogram September 08, 2017 reviewed and reveals EF 60% Normal chamber dimensions Mild left ventricular hypertrophy Normal wall motion mitral valve Trivial regurgitation Tricuspid valve trivial to mild regurgitation Pulmonic valve trivial regurgitation Discussed that case with Dr. Waller, request loop recorder interrogated and Lexiscan in AM Lexiscan ordered for AM, patient NPO after midnight GERD Continue patient's pantoprazole and ranitidine Hyperlipidemia Continue patient's home atorvastatin TIA Continue patient's home Plavix and atorvastatin HTN continue home Losartan DVT prophylaxis with SCDs <Martin Radford - Last Filed: 03/02/18 17:51> History of Present Illness Primary Care Physician: UNKNOWN - Diagnosis (1) Palpitations PMF - Medical History Medical History: Medical History (Last Updated 02/09/18 @ 21:31 by Cherie Talbert) CVA (cerebral vascular accident) H/O: hysterectomy HTN (hypertension) Holter monitor, abnormal Pseudotumor TIA (transient ischemic attack) - Surgical History Surgical History: Surgical History (Last Updated 02/09/18 @ 21:31 by Cherie Talbert) Hx of tonsillectomy Results - Labs CBC & Chem 7: 02/11/18 06:03 02/11/18 06:03 Caprini VTE Risk Assessment Caprini Risk Assessment Model: Point Value = 1 Point Value = 2 Point Value = 3 Point Value = 5 Age 41-60 Minor surgery BMI > 25 kg/m2 Swollen legs Varicose veins or History of unexplained or recurrent spontaneous Oral contraceptives or hormone replacement Sepsis (< 1 month) Serious lung disease, including pneumonia (< 1 month) Abnormal pulmonary function Acute myocardial infarction Congestive heart failure (< 1 month) History of inflammatory bowel disease Medical patient at bed rest Age 61-74 Arthroscopic surgery Major open surgery (> 45 min) Laparoscopic surgery (> 45 min) Malignancy Confined to bed (> 72 hours) Immobilizing plaster cast Central venous access Age >= 75 History of VTE Family history of VTE Factor V Leiden Prothrombin [id number] Lupus anticoagulant Anticardiolipin antibodies Elevated serum homocysteine Heparin-induced thrombocytopenia Other congenital or acquired thrombophilia Stroke (< 1 month) Elective arthroplasty Hip, pelvis, or leg fracture Acute spinal cord injury (< 1 month) Prophylaxis Regimen: Total Risk Factor Score Risk Level Prophylaxis Regimen 0-1 Low Early ambulation 2 Moderate Order ONE of the following: *Sequential Compression Device (SCD) *Heparin 5000 units SQ BID 3-4 Higher Order ONE of the following medications: *Heparin 5000 units SQ TID *Enoxaparin/Lovenox 40 mg SQ daily (WT < 150 kg, CrCl > 30 mL/min) *Enoxaparin/Lovenox 30 mg SQ daily (WT < 150 kg, CrCl > 10-29 mL/min) *Enoxaparin/Lovenox 30 mg SQ BID (WT < 150 kg, CrCl > 30 mL/min) AND/OR *Sequential Compression Device (SCD) 5 or more Highest Order ONE of the following medications: *Heparin 5000 units SQ TID (Preferred with Epidurals) *Enoxaparin/Lovenox 40 mg SQ daily (WT < 150 kg, CrCl > 30 mL/min) *Enoxaparin/Lovenox 30 mg SQ daily (WT < 150 kg, CrCl > 10-29 mL/min) *Enoxaparin/Lovenox 30 mg SQ BID (WT < 150 kg, CrCl > 30 mL/min) AND *Sequential Compression Device (SCD) Assessment and Plan - Assessment (1) Palpitations Code(s): R00.2 - Palpitations Status: Acute - Attending Attestation Patient examined. Assessment and plan formulated with Fina Del Toro PA-C. I agree with the above.
--- NOTE | 2018-02-10 14:04 | ECG ---
Date Performed: 02/09/2018 Time Performed: 21:41:32 PTAGE: 62 years EKG: Sinus rhythm INFERIOR MYOCARDIAL INFARCTION ABNORMAL ECG PREVIOUS TRACING : 09/06/2017 20.33 DOCTOR: Elsa Waller Interpretating Date/Time 02/10/2018 14:01:19
--- NOTE | 2018-02-10 20:58 | MB ---
cc: Elsa Waller MD, Edward B DO DATE: 02/10/2018 REASON FOR CONSULTATION: Tachyarrhythmia. HISTORY OF PRESENT ILLNESS: Ms. Espinoza is a 62-year-old female with a history of palpitations, TIA, high blood pressure, hyperlipidemia, obesity, previous cardiac study by Dr. Murillo, who was at home yesterday and while having dinner, suddenly began with palpitations. She was having also shortness of breath. Her symptoms continued to get worse. She decided to come to the emergency room where she was evaluated and admitted. Since hospitalization, the patient is asymptomatic. The patient was evaluated by Dr. Radford. I was consulted for evaluation and management. The chart was reviewed. The patient was evaluated. The case was also discussed with Dr. Radford. ALLERGIES: CLONIDINE AND TRAMADOL. SOCIAL HISTORY: Negative for smoking and drinking. FAMILY HISTORY: Noncontributory to her current medical condition. MEDICATIONS: She is on: 1. Atorvastatin 40 mg a day. 2. Plavix 75 mg a day. 3. Famotidine 20 mg a day. 4. Losartan 100 mg a daily. 5. Zofran p.r.n. 6. Restoril p.r.n. 7. Vitamin D. REVIEW OF SYSTEMS: Currently, the patient refers no chest pain, no chest discomfort. No fever. PHYSICAL EXAMINATION: GENERAL: Alert, fully oriented, in bed. VITAL SIGNS: Blood pressure 142/71, pulse 75, respiratory rate 18. LUNGS: Ventilated. CARDIOVASCULAR: S1, S2. Regular. No gallop. ABDOMEN: Obese. No mass, no bruits. EXTREMITIES: No edema. ELECTROCARDIOGRAM: Reveals sinus rhythm, no acute ST and T-wave changes. LABORATORY DATA: Hemoglobin 12.9, white blood cells 5.8. INR 1. Potassium 3.4, creatinine 0.93. Troponin less than 0.02. ASSESSMENT AND RECOMMENDATIONS: Ms. Espinoza is currently stable. Telemetry shows sinus rhythm. Blood pressure is adequate. The patient was complaining about tachyarrhythmia and palpitations. The loop recorder from [employer] was interrogated by the human resources hr representative. That indicated no tachyarrhythmia in the last 24-48 hours. Currently, the patient is stable, asymptomatic. My recommendation is continue current management. Further evaluation by the medical team. If the patient continues to be asymptomatic and a nuclear stress study is negative, then can be discharged home. I will be available if necessary. MD MONICA Hawley/tylor , 08:20 PM , 08:30 PM
[2018-02-10] MEDS: Famotidine 20 MG Tablet PO SCH (21:29)
[2018-02-11 07:13] LABS: Baso % (Auto) 0.7 % (0.0-2.0); Eos # (Auto) 0.1 th/mm3 (0.0-0.4); Eos % (Auto) 2.4 % (0.0-4.0); Hematocrit 38.7 % (35.0-46.0); Hemoglobin 12.6 gm/dL (11.6-15.3); Lymph # (Auto) 1.5 th/mm3 (1.0-4.8); Lymph % (Auto) 36.4 % (9.0-44.0); Mean Corpuscular HGB Conc 32.6 % (32.0-36.0); Mean Corpuscular Hemoglobin 28.2 pg (27.0-34.0); Mean Corpuscular Volume 86.7 fL (80.0-100.0); Mean Platelet Volume 8.4 fL (7.0-11.0); Mono # (Auto) 0.4 th/mm3 (0.0-0.9); Mono % (Auto) 9.5 % (0.0-8.0); Platelet Count 242 th/mm3 (150-450); Red Blood Count 4.47 mil/mm3 (4.00-5.30); Red Cell Distribution Width 15.5 % (11.6-17.2)
[2018-02-11 07:26] LABS: Calcium 8.8 mg/dL (8.5-10.1); Carbon Dioxide 20.9 meq/L (21.0-32.0); Potassium 3.7 meq/L (3.5-5.1)
[2018-02-11] MEDS: Calcium Carbonate 500 MG Tablet PO SCH (08:32)
--- NOTE | 2018-02-11 09:46 | P.PNIM ---
Subjective Interval history: pt very sob just with minimal exertion. Physical Exam Vital signs: Vital Signs 02/10/18 10:58 02/10/18 15:42 02/10/18 16:00 Temperature 98.9 F 98.7 F Pulse Rate 73 75 75 Respiratory Rate 18 20 Blood Pressure 142/71 H 150/98 H Pulse Oximetry 98 99 02/10/18 17:00 02/10/18 18:00 02/10/18 19:00 Temperature Pulse Rate 74 76 87 Respiratory Rate Blood Pressure Pulse Oximetry 02/10/18 20:00 02/10/18 21:00 02/10/18 22:00 Temperature 98.1 F Pulse Rate 83 86 82 Respiratory Rate 16 Blood Pressure 121/83 Pulse Oximetry 99 02/10/18 23:00 02/11/18 00:00 02/11/18 01:00 Temperature Pulse Rate 76 71 71 Respiratory Rate 16 Blood Pressure 125/86 Pulse Oximetry 98 02/11/18 02:00 02/11/18 03:00 02/11/18 04:00 Temperature Pulse Rate 73 65 82 Respiratory Rate 16 Blood Pressure 108/78 Pulse Oximetry 100 02/11/18 05:00 02/11/18 06:00 02/11/18 07:00 Temperature Pulse Rate 34 L 71 65 Respiratory Rate Blood Pressure Pulse Oximetry 02/11/18 08:00 02/11/18 09:00 02/11/18 09:38 Temperature 98.1 F Pulse Rate 75 65 72 Respiratory Rate 18 Blood Pressure 122/96 H Pulse Oximetry 97 Intake & Output 02/10/18 02/11/18 02/11/18 18:59 06:59 18:59 Intake Total 420 / 420 240 / 240 Output Total 300 / 300 700 / 700 Balance 120 / 120 -460 / -460 Weight 94.4 kg Intake: Oral 420 / 420 240 / 240 Output: Urine 300 / 300 700 / 700 Other: # Voids 1 Date of Last Bowel Movement 02/10/18 02/10/18 heart reg lung cta abd s/nt ext no edema Results - Labs CBC & Chem 7: 02/11/18 06:03 02/11/18 06:03 Laboratory Results - last 24 hr 02/11/18 02/11/18 06:03 06:03 WBC 4.0 RBC 4.47 Hgb 12.6 Hct 38.7 MCV 86.7 MCH 28.2 MCHC 32.6 RDW 15.5 Plt Count 242 MPV 8.4 Neut % (Auto) 51.0 Lymph % (Auto) 36.4 [place] % (Auto) 9.5 H Eos % (Auto) 2.4 Baso % (Auto) 0.7 Neut # (Auto) 2.0 Lymph # (Auto) 1.5 [place] # (Auto) 0.4 Eos # (Auto) 0.1 Baso # (Auto) 0.0 WBC Differential . Differential Comment Auto diff final Sodium 143 Potassium 3.7 Chloride 112 H Carbon Dioxide 20.9 L Anion Gap 10 BUN 14 Creatinine 0.88 Estimated GFR 79 L Random Glucose 127 H Calcium 8.8 D Assessment and Plan - Assessment (1) Palpitations Code(s): R00.2 - Palpitations Status: Acute Plan: This is a 62-year-old female patient with past medical history which includes anxiety, GERD, migraine headaches, TIA, hypertension, hyperlipidemia, pseudotumor cerebri, obesity, TMJ and recent arrhythmia on outpatient loop recorder. Patient had loop recorder placed in August by her outpatient cold work operator Dr. Murillo. She reports that recently she was told that there was an electrical disturbance and she was referred her to Dr. Waller. Patient presented to the ER for evaluation of dyspnea. Patient reports that Sunday and then again on Sunday patient had intermitted shortness of breath with palpations. these episodes last approximately 2 hours. Patient reports that her outpatient cold work operator called her in metoprolol but she has not yet been able to get to the pharmacy to shredder picker prescription. She denies chest pain, cough, congestion, dizziness, lightheadedness, nausea, vomiting, abdominal pain , recent illness, recent travel, diarrhea. Palpitations, dyspnea Possible arrhythmia Continuous telemetry monitoring Consult cardiology Dr. Waller, Per patient has had arrhythmia on loop recorder and was going to be referred to Dr. Waller for further evaluation Outpatient 2D echocardiogram September 08, 2017 reviewed and reveals EF 60% Normal chamber dimensions Mild left ventricular hypertrophy Normal wall motion mitral valve Trivial regurgitation Tricuspid valve trivial to mild regurgitation Pulmonic valve trivial regurgitation cardiology says no tachyarrhythmias identified on loop recorder pt going for lexiscan today GERD Continue patient's pantoprazole and ranitidine Hyperlipidemia Continue patient's home atorvastatin TIA Continue patient's home Plavix and atorvastatin HTN continue home Losartan DVT prophylaxis with SCDs
--- NOTE | 2018-02-11 15:26 | P.PNCA ---
Subjective Interval history: No acute events. Still shortness of breath, and is worried about what is going on. Physical Exam Vital signs: Vital Signs 02/10/18 15:42 02/10/18 16:00 02/10/18 17:00 Temperature 98.9 F 98.7 F Pulse Rate 75 75 74 Respiratory Rate 18 20 Blood Pressure 142/71 H 150/98 H Pulse Oximetry 98 99 02/10/18 18:00 02/10/18 19:00 02/10/18 20:00 Temperature 98.1 F Pulse Rate 76 87 83 Respiratory Rate 16 Blood Pressure 121/83 Pulse Oximetry 99 02/10/18 21:00 02/10/18 22:00 02/10/18 23:00 Temperature Pulse Rate 86 82 76 Respiratory Rate Blood Pressure Pulse Oximetry 02/11/18 00:00 02/11/18 01:00 02/11/18 02:00 Temperature Pulse Rate 71 71 73 Respiratory Rate 16 Blood Pressure 125/86 Pulse Oximetry 98 02/11/18 03:00 02/11/18 04:00 02/11/18 05:00 Temperature Pulse Rate 65 82 34 L Respiratory Rate 16 Blood Pressure 108/78 Pulse Oximetry 100 02/11/18 06:00 02/11/18 07:00 02/11/18 08:00 Temperature 98.1 F Pulse Rate 71 65 75 Respiratory Rate 18 Blood Pressure 122/96 H Pulse Oximetry 97 02/11/18 09:00 02/11/18 09:38 02/11/18 11:00 Temperature Pulse Rate 65 72 62 Respiratory Rate Blood Pressure Pulse Oximetry 02/11/18 12:00 02/11/18 13:00 02/11/18 13:57 Temperature 98.2 F Pulse Rate 68 70 68 Respiratory Rate 18 Blood Pressure 158/101 H Pulse Oximetry 99 Intake & Output 02/10/18 02/11/18 02/11/18 18:59 06:59 18:59 Intake Total 420 / 420 240 / 240 Output Total 300 / 300 700 / 700 Balance 120 / 120 -460 / -460 Weight 94.4 kg Intake: Oral 420 / 420 240 / 240 Output: Urine 300 / 300 700 / 700 Other: # Voids 1 Date of Last Bowel Movement 02/10/18 02/10/18 - Constitutional no acute distress - Routine Neck Exam Absent: JVD - Routine Respiratory Exam Present: CTA bilaterally - Routine Cardiovascular Exam Present: RRR, S1, S2 - Routine Extremities Exam Absent: edema - Routine Neurological Exam Present: alert, oriented X3 Assessment and Plan - Plan Dyspnea on Exertion Palpitations TIA HTN There does not appear to be an arrhythmia on loop recorder recently. Echo reviewed EF is normal no other major abnormalities.. Although the patient had a recent Lexiscan on 09/12, given her presenting symptoms Dr. Waller would like to repeat a Lexiscan which I agree with. Unfortunately this was cancelled, but we will ensure that it is done tomorrow and I will follow up the results on behalf of Dr. Waller. Thank you for allowing me to participate. Please contact me with any questions.
[2018-02-11] MEDS: Famotidine 20 MG Tablet PO SCH (20:22)
--- NOTE | 2018-02-12 08:40 | P.PNCA ---
Subjective Interval history: Mildly anxious. No chest pain. Physical Exam Vital signs: Vital Signs 02/11/18 09:00 02/11/18 09:38 02/11/18 11:00 Temperature Pulse Rate 65 72 62 Respiratory Rate Blood Pressure Pulse Oximetry 02/11/18 12:00 02/11/18 13:00 02/11/18 13:57 Temperature 98.2 F Pulse Rate 68 70 68 Respiratory Rate 18 Blood Pressure 158/101 H Pulse Oximetry 99 02/11/18 15:00 02/11/18 16:00 02/11/18 17:00 Temperature 97.8 F Pulse Rate 78 77 80 Respiratory Rate 18 Blood Pressure 142/96 H Pulse Oximetry 99 02/11/18 17:11 02/11/18 19:00 02/11/18 20:00 Temperature 98.2 F Pulse Rate 78 79 89 Respiratory Rate 20 Blood Pressure 142/96 H Pulse Oximetry 99 02/11/18 21:00 02/11/18 22:00 02/11/18 23:00 Temperature Pulse Rate 81 81 71 Respiratory Rate Blood Pressure Pulse Oximetry 02/11/18 23:33 02/12/18 00:00 02/12/18 01:00 Temperature 98 F Pulse Rate 77 81 74 Respiratory Rate 18 Blood Pressure 137/98 H Pulse Oximetry 99 02/12/18 02:00 02/12/18 02:59 02/12/18 03:11 Temperature 97.8 F Pulse Rate 71 70 73 Respiratory Rate 18 Blood Pressure 98/55 L Pulse Oximetry 97 02/12/18 03:47 02/12/18 05:00 02/12/18 05:55 Temperature Pulse Rate 74 72 71 Respiratory Rate Blood Pressure Pulse Oximetry 02/12/18 07:00 02/12/18 08:00 Temperature Pulse Rate 80 70 Respiratory Rate Blood Pressure Pulse Oximetry Intake & Output 02/11/18 02/12/18 02/12/18 18:59 06:59 18:59 Intake Total 720 / 720 480 / 480 Output Total 900 / 900 400 / 400 Balance -180 / -180 80 / 80 Weight 207 lb 10.807 oz Intake: Oral 720 / 720 480 / 480 Output: Urine 900 / 900 400 / 400 Narrative: GENERAL: Well-nourished, well-developed, no acute distress. SKIN: Warm and dry. HEAD: Atraumatic. Normocephalic. EYES: Pupils equal and round. No scleral icterus. No injection or drainage. ENT: No nasal bleeding or discharge. Mucous membranes pink and moist. NECK: Trachea midline. No JVD. CARDIOVASCULAR: Regular rate and rhythm. RESPIRATORY: No accessory muscle use. Clear to auscultation. Breath sounds equal bilaterally. GASTROINTESTINAL: Abdomen soft, non-tender, nondistended. Hepatic and splenic margins not palpable. MUSCULOSKELETAL: Extremities without clubbing, cyanosis, or edema. No obvious deformities. NEUROLOGICAL: Awake and alert. No obvious cranial nerve deficits. Motor grossly within normal limits. Normal speech. PSYCHIATRIC: Mild anxiety. Assessment and Plan - Assessment (1) Near syncope Code(s): R55 - Syncope and collapse Status: Acute - Plan Mild anxiety today, concerned about results of stress test. No cardiac arrhythmias seen on loop recorder, echo without significant findings. Repeat Lexiscan stress test. Assessment and plan per my d/w Dr. Waller.
--- NOTE | 2018-02-12 10:02 | P.PNIM ---
Subjective Interval history: pt says her sob was better. ambulated with PT yesterday. stress test was cancelled but cardiology would like to proceed with it today. Physical Exam Vital signs: Vital Signs 02/11/18 11:00 02/11/18 12:00 02/11/18 13:00 Temperature 98.2 F Pulse Rate 62 68 70 Respiratory Rate 18 Blood Pressure 158/101 H Pulse Oximetry 99 02/11/18 13:57 02/11/18 15:00 02/11/18 16:00 Temperature 97.8 F Pulse Rate 68 78 77 Respiratory Rate 18 Blood Pressure 142/96 H Pulse Oximetry 99 02/11/18 17:00 02/11/18 17:11 02/11/18 19:00 Temperature Pulse Rate 80 78 79 Respiratory Rate Blood Pressure Pulse Oximetry 02/11/18 20:00 02/11/18 21:00 02/11/18 22:00 Temperature 98.2 F Pulse Rate 89 81 81 Respiratory Rate 20 Blood Pressure 142/96 H Pulse Oximetry 99 02/11/18 23:00 02/11/18 23:33 02/12/18 00:00 Temperature 98 F Pulse Rate 71 77 81 Respiratory Rate 18 Blood Pressure 137/98 H Pulse Oximetry 99 02/12/18 01:00 02/12/18 02:00 02/12/18 02:59 Temperature Pulse Rate 74 71 70 Respiratory Rate Blood Pressure Pulse Oximetry 02/12/18 03:11 02/12/18 03:47 02/12/18 05:00 Temperature 97.8 F Pulse Rate 73 74 72 Respiratory Rate 18 Blood Pressure 98/55 L Pulse Oximetry 97 02/12/18 05:55 02/12/18 07:00 02/12/18 08:00 Temperature Pulse Rate 71 80 70 Respiratory Rate Blood Pressure Pulse Oximetry Intake & Output 02/11/18 02/12/18 02/12/18 18:59 06:59 18:59 Intake Total 720 / 720 480 / 480 Output Total 900 / 900 400 / 400 Balance -180 / -180 80 / 80 Weight 94.2 kg Intake: Oral 720 / 720 480 / 480 Output: Urine 900 / 900 400 / 400 heart reg lung cta abd s/nt ext no edema Results - Labs CBC & Chem 7: 02/11/18 06:03 02/11/18 06:03 Assessment and Plan - Assessment (1) Palpitations Code(s): R00.2 - Palpitations Status: Acute Plan: This is a 62-year-old female patient with past medical history which includes anxiety, GERD, migraine headaches, TIA, hypertension, hyperlipidemia, pseudotumor cerebri, obesity, TMJ and recent arrhythmia on outpatient loop recorder. Patient had loop recorder placed in August by her outpatient customs import specialist Dr. Murillo. She reports that recently she was told that there was an electrical disturbance and she was referred her to Dr. Waller. Patient presented to the ER for evaluation of dyspnea. Patient reports that Sunday and then again on Sunday patient had intermitted shortness of breath with palpations. these episodes last approximately 2 hours. Patient reports that her outpatient customs import specialist called her in metoprolol but she has not yet been able to get to the pharmacy to molded goods spot picker prescription. She denies chest pain, cough, congestion, dizziness, lightheadedness, nausea, vomiting, abdominal pain , recent illness, recent travel, diarrhea. Palpitations, dyspnea Possible arrhythmia Continuous telemetry monitoring Consult cardiology Dr. Waller, Per patient has had arrhythmia on loop recorder and was going to be referred to Dr. Waller for further evaluation Outpatient 2D echocardiogram September 08, 2017 reviewed and reveals EF 60% Normal chamber dimensions Mild left ventricular hypertrophy Normal wall motion mitral valve Trivial regurgitation Tricuspid valve trivial to mild regurgitation Pulmonic valve trivial regurgitation cardiology says no tachyarrhythmias identified on loop recorder pt going for lexiscan today. cont oob with PT> ADDENDUM: LEXISCAN. NO LARGE INFARCT OR ISCHEMIA CALLED BY RN. PT FEELS WELL AND EAGER FOR DC. AMBULATED WITH PT DENIES SOB AND OXYGENATING WELL. 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 GERD Continue patient's pantoprazole and ranitidine Hyperlipidemia Continue patient's home atorvastatin TIA Continue patient's home Plavix and atorvastatin HTN continue home Losartan DVT prophylaxis with SCDs
[2018-02-12] MEDS ORDERED: Regadenoson Inj 0.4 MG/5 ML Syringe IV.PUSH ONE (10:06)
--- NOTE | 2018-02-12 11:59 | NM ---
EXAM DATE: 02/12/2018 11:30 AM EDT AGE/SEX: 62 years / Female INDICATIONS:Angina. . Shortness of breath. CLINICAL DATA: This is the patient's initial encounter. Patient reports that signs and symptoms have been present for 3 days and indicates a pain score of 0/10. MEDICAL/SURGICAL HISTORY: Stroke. Hypertension. Hysterectomy. Tonsillectomy. COMPARISON: [facility], MYOCARDIAL PERF PHARM SPECT, 08/26/2017. . DOSE: 8.4 mCi Tc 99m Myoview at rest 26.3 mCi [id number] at stress 0.4 mg Lexiscan STRESS SYMPTOMS: Shortness of breath. EJECTION FRACTION: 65 % TECHNIQUE: The patient underwent pharmacologic stress with infusion of prescribed dose. Continuous ECG tracing was monitored during stress. Gated SPECT imaging was performed after stress and conventi onal SPECT imaging was performed at rest. The examination was performed on a SPECT/CT scanner, both attenuation and non-corrected datasets were reviewed. FINDINGS: Distribution: The maximum perfused segment at stress is in the mid septal wall. Perfusion Study: The pattern of perfusion at stress is within normal limits. Gated Study: There are intact wall motion and wall thickening without hypokinetic or dyskinetic segm ents. The ejection fraction is calculated at 65%. RISK CATEGORY: Low (<1% Annual Motality Rate) CONCLUSION: 1. No large infarct or area of ischemia is noted. Electronically signed by: Parviz Marr MD 02/12/2018 11:58 AM EDT
[2018-02-12] MEDS: Calcium Carbonate 500 MG Tablet PO SCH (12:07)
[2018-02-12 12:49] VITALS: BP 151/99; RESP 18; TEMP 98.7; O2SAT 99
[2018-02-12 15:44] VITALS: PULSE 78
--- NOTE | 2018-02-15 15:22 | P.DS ---
Date of admission: 02/10/18 00:46 Primary care physician: UNKNOWN Anticipated date of discharge: 02/12/18 Brief History from admission: This is a 62-year-old female patient with past medical history which includes anxiety, GERD, migraine headaches, TIA, hypertension, hyperlipidemia, pseudotumor cerebri, obesity, TMJ and recent arrhythmia on outpatient loop recorder. Patient had loop recorder placed in August by her outpatient channel marketing manager Dr. Murillo. She reports that recently she was told that there was an electrical disturbance and she was referred her to Dr. Waller. Patient presented to the ER for evaluation of dyspnea. Patient reports that Sunday and then again on Sunday patient had intermitted shortness of breath with palpations. these episodes last approximately 2 hours. Patient reports that her outpatient channel marketing manager called her in metoprolol but she has not yet been able to get to the pharmacy to supervisor opening and picking prescription. She denies chest pain, cough, congestion, dizziness, lightheadedness, nausea, vomiting, abdominal pain , recent illness, recent travel, diarrhea. 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 Patient had loop recorder placed in August by her outpatient channel marketing manager Dr. Murillo. She reports that recently she was told that there was an electrical disturbance and she was referred her to Dr. Waller. Patient presented to the ER for evaluation of dyspnea. Patient reports that Sunday and then again on Sunday patient had intermitted shortness of breath with palpations. these episodes last approximately 2 hours. Patient reports that her outpatient channel marketing manager called her in metoprolol but she has not yet been able to get to the pharmacy to supervisor opening and picking prescription. She denies chest pain, cough, congestion, dizziness, lightheadedness, nausea, vomiting, abdominal pain , recent illness, recent travel, diarrhea. Palpitations, dyspnea Possible arrhythmia Continuous telemetry monitoring Consult cardiology Dr. Waller, Per patient has had arrhythmia on loop recorder and was going to be referred to Dr. Waller for further evaluation Outpatient 2D echocardiogram September 08, 2017 reviewed and reveals EF 60% Normal chamber dimensions Mild left ventricular hypertrophy Normal wall motion mitral valve Trivial regurgitation Tricuspid valve trivial to mild regurgitation Pulmonic valve trivial regurgitation cardiology says no tachyarrhythmias identified on loop recorder pt going for lexiscan today.. cont oob with PT> ADDENDUM: LEXISCAN. NO LARGE INFARCT OR ISCHEMIA CALLED BY RN. PT FEELS WELL AND EAGER FOR DC. AMBULATED WITH PT DENIES SOB AND OXYGENATING WELL. 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 GERD Continue patient's pantoprazole and ranitidine Hyperlipidemia Continue patient's home atorvastatin TIA Continue patient's home Plavix and atorvastatin HTN continue home Losartan DVT prophylaxis with SCDs - Time Spent with Patient Total time spent providing and/or coordinating discharge services: Greater than 30 minutes - Quality: VTE Deep Vein Thrombosis/Pulmonary Embolism Present on Admission: No Exam Vital signs: heart reg lung cta abd s/nt ext no edema Results Procedures completed during hospitalization: lexiscan - Impressions ITS Impressions Chest X-Ray 02/09/18 21:47 CONCLUSION: No acute cardiopulmonary disease identified. Myocardial Perfusion Scan Nuc Med 02/12/18 00:00 CONCLUSION: 1. No large infarct or area of ischemia is noted. Discharge Plan - Discharge Disposition Patient Disposition: Discharge Home - Discharge Condition Condition: Stable - Discharge Order Discharge Orders: Discharge Order (Routine); Ordered 02/12/18 Ordered By: Edwardo Oh - Discharge Details Anticipated Discharge Date: 02/12/18 - Physicians Team Primary Care Provider: UNKNOWN, Attending Provider: Martin Radford Other Providers: Elsa Waller MD
== END 2018-02-12 18:13 | disposition home or self-care (01) ==
LOC: NEPE 20:55 → NEDA 20:55 → OBSVTOIN 02-10 00:47 → INTOOBSV 02-10 00:47 → NEPGCP 02-10 01:26 → HCIS 02-10 16:11
PROVIDERS: ADMIT Hospitalist; ATTEND Hospitalist